=== PATIENT | female | born 1970 | race Caucasian/White ===

== ENCOUNTER → 2018-08-01 16:30 | Outpatient (CLI) | payer OTHER, SELFPAY ==
[2018-08-07 15:51] LABS: HPV HC, High Risk Negative (Negative)
== END ==
PROVIDERS: Referring Provider Obstetrics & Gynecology; Visit Provider Obstetrics & Gynecology
DX: Z12.4 Encounter for screening for malignant neoplasm of cervix (principal)
CPT/HCPCS: 87624; 88175; G0145

== ENCOUNTER → 2018-08-23 16:05 | Outpatient (CLI) | payer OTHER, SELFPAY ==
[2017-08-22 15:07] VITALS: BMI 23.0
--- NOTE | 2018-08-23 16:30 | BI_ITS ---
MAMMOGRAPHY - BILATERAL SCREENING REASON FOR EXAM: Female, 48 years old. Routine annual screening examination. PERTINENT HISTORY: Aunt with breast cancer. Prior left stereotactic breast biopsy. TECHNIQUE: Digital bilateral breast jefferson (3D mammographic acquisition) in the CC and MLO projections. 2-D mediolateral oblique (MLO) and craniocaudad (CC) views of both breasts were obtained. CAD: Full Field Digital Mammography with Computer Added Detection was performed. COMPARISON: Comparison is made with prior study dated August 13, 2017. FINDINGS: Breast Composition: The breasts are extremely dense, which lowers the sensitivity of mammography. There are no dominant masses or suspicious calcifications. Scattered microcalcifications are once again seen in the retroareolar region of the left breast. At this time however, a tissue clip marker is seen at that site. They have decreased in number. Stable bilateral benign-appearing axillary lymph nodes. No other significant abnormalities are identified. BI/SCREENING MAMM (CAD), BILAT IMPRESSION: Stable bilateral screening mammogram. Yearly follow-up mammogram recommended. (A) ASSESSMENT CATEGORY: BIRADS Category 2: Benign. A letter regarding these results will be sent to the patient by the facility within 30 days. Approximately 10% of breast cancers are not detected by mammography. A normal mammogram should not delay biopsy of a clinically suspicious abnormality. [id number] Electronically Signed: Chandler Huizar MD at 8:30 EST Tel [phone], Service support ,
--- OUTSIDE RECORDS SUMMARY | 2018-10-09 21:58 | XMS RPT_ITS ---
:1970 Author Organization [facility] Care Team Providers Name Role Phone Masood Romero Attending Unavailable Seals, Masood Referring Unavailable Primay Care Physicia, No Primary Care Unavailable Seals, Masood Attending Unavailable Seals, Masood Referring Unavailable Primay Care Physicia, No Primary Care Unavailable Seals, Masood Attending Unavailable Seals, Masood Referring Unavailable PROBLEMS PROBLEMS DATE TYPE CONDITION / CODE ATTENDING STATUS SOURCE 09/15/2018 Unknown R92.2 - Masood Romero Active [facility] R92.2(ICD-10) Repository 08/02/2018 Unknown Z12.4 - Encounter Masood Romero for screening for Community malignant neoplasm [facility] cervix / Repository Z12.4(ICD-10) PROCEDURES PROCEDURES No Procedure Records FoundRESULTS RESULTS BREAST BILATERAL W/O Observed: 09/15/2018 Status: F Source: [facility] AND W 9:31 AM [facility] REPOSITORY [facility] Imaging Services [address] [place] [address] Breast Bilateral W/O and W MR#: [id number] Acct: [id number] Name: CHUN HERNANDES Rep #: [id number] : 1970 F 48 From: Roger Galindo MD PCP: Care Physician, No Primary Status: REG CLI Study: Breast Bilateral W/O and W Date of Exam: 09/15/18 Exam# [id number] Ordering Dr: Masood Romero MD STUDY: BILATERAL BREAST MR WITHOUT AND WITH CONTRAST REASON FOR EXAM: Female, 48 years old. History of prior left stereotactic biopsy. Dense breasts with inconclusive mammogram. 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 TECHNIQUE: Multi-sequence multi-echo imaging of both breasts was performed with a dedicated breast coil. T1-weighted and T2- weighted images were performed before the administration of contrast. T1- weighted images were also performed after the administration of 6 mL of Gadavist contrast intravenously without complications. COMPARISON: Mammograms dated August 23, 2018 and August 13, 2017. FINDINGS: RIGHT BREAST: The breast tissue is markedly dense with minimal background enhancement. There are no abnormal enhancing masses or areas of non-mass enhancement in the right breast. LEFT BREAST: The breast tissue is markedly dense with minimal background enhancement. There are no abnormal enhancing masses or areas of non-mass enhancement in the left breast. There are no enlarged or abnormal lymph nodes. There is no abnormality in the visualized regions of the chest or liver. MRI/Breast Bilateral W/O and W IMPRESSION: No abnormality on the breast MRI without and with contrast. CATEGORY: BIRADS Category 2: Benign. A letter regarding these results will be sent to the patient by the facility within 30 days. Electronically Signed: Roger Galindo MD at 18:00 EST , Service support , CC: No Primary Care Physician; Masood Romero MD Audio Video Tech: Signed PROGRESS Observed: 09/01/2018 Status: COMPLETED Source: [place] 11:[address] [facility] [place] REPOSITORY [facility] ID: [id number] Author: Cassi Skinner (Sylvain) Layton Service: (none) Author Type: Nurse Practitioner Type: Progress Notes Filed: 09/01/2018 11:07 AM Note Text: Subjective HPI Patient presents with: Acute Visit: cold sore x yesterday Using Abreva otc but states out of oral medication prescribed by dentist, Famvir. Review of Systems Constitutional: Negative for fever and malaise/fatigue. HENT: Cold sore x yesterday PAST MEDICAL HISTORY Diagnosis Date - infertility 2002 was on clomid - Mitral valve disorders(424.0) Mitral valve prolaspe PAST SURGICAL HISTORY Procedure Laterality Date - EXTRACTION ERUPTED TOOTH/EXR WISDOM TEETH - HYSTEROSALPINGOGRAM CATHANDINSTILL ALLERGIES Patient has no known allergies. MEDICATIONS METOPROLOL TARTRATE ORAL Take 25 mg by mouth. One pill at bedtime and 1/2 pill in morning famciclovir (FAMVIR) 125 mg tablet Take 1 tablet by mouth twice daily for 5 days. Pseudoephedrine-guaiFENesin 120-1,200 mg Tb12 Take 1 tablet by mouth every 12 hours as needed ( FOR SINUS CONGESTION). FAMILY HISTORY Problem Relation Age of Onset - Breast Cancer Other MGGM - Cancer Maternal Grandfather SKIN - Hypertension Maternal Grandmother - Hypertension Maternal Grandfather - Diabetes Mother TYPE 2 - Heart Paternal Grandmother - Hypertension Mother Social History Substance Use Topics - Smoking status: Never Smoker - Smokeless tobacco: Never Used - Alcohol use Yes Comment: socially, NOT WHILE Objective Physical Exam HENT: Head: Nursing note and vitals reviewed. ASSESSMENT/PLAN: 1. Recurrent cold sores - ICD9: 054.9, ICD10: B00.1 -Famvir (per pt request, this is what she usually takes prescribed by dentist) -F/u with pcp in 3-5 days or sooner if symptoms are not improving or worsening Prescription instructions reviewed with patient as applicable. Patient advised if symptoms do not improve or if symptoms worsen sooner, to contact their primary care physician. Potential red flag symptoms discussed with the patient. Reviewed appropriate action plan to take if red flag symptoms occur. Patient agreeable to treatment plan. Cassi Traylor APRN.CRIS CNOV Observed: 09/01/2018 Status: COMPLETED Source: [place] 9:15 AM [facility] REPOSITORY Office Visit (WSTR) GRETACHUN MORLEY ([id number]) 1970 F Date Time Provider Department 09/01/18 9:15 AM CASSI TRAYLOR (FIELD INSTRUCTOR) [facility] During your visit today, we recorded the following information about you: Temperature Pulse Respiration Blood pressure 97.8 degrees 54/minute 18/minute 90/78 Weight 58.9 kg Cassi Traylor APRN.CNP 09/01/2018 11:07 AM Signed Subjective HPI Patient presents with: Acute Visit: cold sore x yesterday Using Abreva otc but states out of oral medication prescribed by dentist, Famvir. Review of Systems Constitutional: Negative for fever and malaise/fatigue. HENT: Cold sore x yesterday PAST MEDICAL HISTORY Diagnosis Date - infertility 2002 was on clomid - Mitral valve disorders(424.0) Mitral valve prolaspe PAST SURGICAL HISTORY Procedure Laterality Date - EXTRACTION ERUPTED TOOTH/EXR WISDOM TEETH - HYSTEROSALPINGOGRAM CATHANDINSTILL ALLERGIES Patient has no known allergies. MEDICATIONS METOPROLOL TARTRATE ORAL Take 25 mg by mouth. One pill at bedtime and 1/2 pill in morning famciclovir (FAMVIR) 125 mg tablet Take 1 tablet by mouth twice daily for 5 days. Pseudoephedrine-guaiFENesin 120-1,200 mg Tb12 Take 1 tablet by mouth every 12 hours as needed ( FOR SINUS CONGESTION). FAMILY HISTORY Problem Relation Age of Onset - Breast Cancer Other MGGM - Cancer Maternal Grandfather SKIN - Hypertension Maternal Grandmother - Hypertension Maternal Grandfather - Diabetes Mother TYPE 2 - Heart Paternal Grandmother - Hypertension Mother Social History Substance Use Topics - Smoking status: Never Smoker - Smokeless tobacco: Never Used - Alcohol use Yes Comment: socially, NOT WHILE Objective Physical Exam HENT: Head: Nursing note and vitals reviewed. ASSESSMENT/PLAN: 1. Recurrent cold sores - ICD9: 054.9, ICD10: B00.1 -Famvir (per pt request, this is what she usually takes prescribed by dentist) -F/u with pcp in 3-5 days or sooner if symptoms are not improving or worsening Prescription instructions reviewed with patient as applicable. Patient advised if symptoms do not improve or if symptoms worsen sooner, to contact their primary care physician. Potential red flag symptoms discussed with the patient. Reviewed appropriate action plan to take if red flag symptoms occur. Patient agreeable to treatment plan. Cassi Traylor, BETITO.CONTINUOUS PILLOWCASE CUTTER Referring Provider: SELF [200] Allergies As of Date: 09/01/2018 (No Known Allergies) Date Reviewed: 09/01/2018 Reviewed by: Stacey Garcia Ma - Fully Assessed Reason for Visit: Acute Visit [896] Cmt: cold sore Primary Visit Diagnosis:Recurrent cold sores [B00.1] Order(s):famciclovir (FAMVIR) 125 mg tabletTake 1 tablet by mouth twice daily for 5 days.Disp: 10 tabletRfl: 0 Prescriptions as of 09/01/2018 Sig: * METOPROLOL TARTRATE ORAL Take 25 mg by mouth. One pill* FAMCICLOVIR 125 MG TABLET Take 1 tablet by mouth twice * PSEUDOEPHEDRINE-GUAIFENESIN E* Take 1 tablet by mouth every * Patient not taking: Reported on 09/01/2018 Problem List As Of Date: 09/01/2018 (None) Prescriptions ordered this encounter Disp Refills Start End FAMCICLOVIR 125 MG TABLET 10 t* 0 09/01/2018 09/06/2018 Route: ORAL Sig: Take 1 tablet by mouth twice daily for 5 days. Disposition: Return if symptoms worsen or fail to improve. Follow-up and Disposition History Recorded Encounter Status:Closed by CASSI TRAYLOR on 09/01/18 SCREENING MAMM (CAD), Observed: 08/23/2018 Status: F Source: [place] B[place] 4:30 PM [facility] REPOSITORY [facility] Imaging Services [address] [place] [id number] SCREENING MAMM (CAD), BILAT MR#: [id number] Acct: [id number] Name: CHUN HERNANDES #: [id number] : 1970 F 48 From: Chandler Huizar MD PCP: Care Physician, No Primary Status: REG CLI Study: SCREENING MAMM (CAD), BILAT Date of Exam: 08/23/18 Exam# [id number] Ordering Dr: Masood Romero MD MAMMOGRAPHY - BILATERAL SCREENING REASON FOR EXAM: Female, 48 years old. Routine annual screening examination. PERTINENT HISTORY: Aunt with breast cancer. Prior left stereotactic breast biopsy. TECHNIQUE: Digital bilateral breast jefferson (3D mammographic acquisition) in the CC and MLO projections. 2-D mediolateral oblique (MLO) and craniocaudad (CC) views of both breasts were obtained. CAD: Full Field Digital Mammography with Computer Added Detection was performed. COMPARISON: Comparison is made with prior study dated August 13, 2017. FINDINGS: Breast Composition: The breasts are extremely dense, which lowers the sensitivity of mammography. There are no dominant masses or suspicious calcifications. Scattered microcalcifications are once again seen in the retroareolar region of the left breast. At this time however, a tissue clip marker is seen at that site. They have decreased in number. Stable bilateral benign-appearing axillary lymph nodes. No other significant abnormalities are identified. BI/SCREENING MAMM (CAD), BILAT IMPRESSION: Stable bilateral screening mammogram. Yearly follow-up mammogram recommended. (A) ASSESSMENT CATEGORY: BIRADS Category 2: Benign. A letter regarding these results will be sent to the patient by the facility within 30 days. Approximately 10% of breast cancers are not detected by mammography. A normal mammogram should not delay biopsy of a clinically suspicious abnormality. [id number] Electronically Signed: Chandler Huizar MD at 8:30 EST Tel [phone], Service support , CC: No Primary Care Physician; Masood Romero MD Audio Video Tech: Signed PAP I-G HPV HI Collected: 08/01/2018 Status: F Source: [place] RISK 4:30 PM [facility] REPOSITORY Order Comment: CYTOLOGY INFORMATION: - CLINICAL INFORMATION: - DATE LMP/MENOPAUSE: 07/08/18 LMP - COLLECTION VIAL: Thin Prep Vial - FAMILY PSYCHOLOGIST SOURCE: CERVICAL/ENDOCERVICAL - COLLECTION TECHNIQUE: BRUSH/SPATULA Specimen Comment: [id number] Specimen Comment: Source.............Cervix;Endocervix Specimen Comment: LMP / Prev Treat...TWD=[id number] Specimen Comment: No. of containers..01 ThinPrep Vial TYPE CODE TESTS RESULT OUT OF RANGE REFERENCE UNITS LAB L7400.0800 . Normal DIAGN Comment Result Comment: NEGATIVE FOR INTRAEPITHELIAL LESION AND MALIGNANCY. CELLULAR CHANGES ASSOCIATED WITH INFLAMMATION ARE PRESENT. THIS SPECIMEN WAS RESCREENED PART OF OUR REPAIRER WELDING EQUIPMENT PROGRAM. LAB L7400.0900 . Normal ADEQ Comment Result Comment: Satisfactory for evaluation. Endocervical and/or squamous metaplastic cells (endocervical component) are present. LAB L7400.1400 . Normal PERFORM Comment Result Comment: Bowen Ruiz, Land Measurer (ASCP) LAB L7400.1500 . Normal QC Comment REV Result Comment: Nimisha Christie, Supervisory Land Measurer (ASCP) LAB L7400.2575 . Normal TEST METHOD Comment Result Comment: This liquid based ThinPrep(R) pap test was screened with the use of an image guided system. LAB L7400.2600 . Normal . COMM LAB L7400.2700 . Normal PAPSMR Comment Result Comment: The Pap smear is a screening test designed to aid in the detection of premalignant and malignant conditions of the uterine cervix. It is not a diagnostic procedure and should not be used as the sole means of detecting cervical cancer. Both false-positive and false-negative reports do occur. LAB L7400.2950 Negative Normal HPV Negative HC,HGH RISK Result Comment: This high-risk HPV test detects thirteen high-risk types (16/18/31/33/35/39/45/51/52/56/58/59/68) without differentiation. Performed at: WB - [facility] [address] [id number] Other Wood Processing Machine Operator: Marilyn Pardo MD, Phone: [phone] Performed at: =G - [facility] [address] [id number] Other Wood Processing Machine Operator: Marilyn Pardo MD, Phone: [phone] Performed By: #### L7400.0375 #### [facility] (refer to report for specific site) refer to report for address and phone number ALLERGIES ALLERGIES DATE TYPE / CODE NAME / CODE REACTION SEVERITY SOURCE 08/31/2017 Drug No Known Unknown [facility] Allergy/416 Allergies/F13190 Hospital [id number](SNOM 0388(RXNORM) Repository ED CT) Drug NO KNOWN [facility] Class/01557 ALLERGIES Main [place] 1003(SNOMED Repository CT) ENCOUNTERS ENCOUNTERS ADMIT/DISCHARGE ACCOUNT ADMITTING ENCOUNTER LOCATION SOURCE NUMBER CLASS 09/15/2018 [id number] [facility] ing:MRI Repository 09/01/2018/09/01/20 [id number] [address]ulatory [address] Repository 08/23/2018 [id number] [facility] ing:OPBI Repository 08/01/2018 [id number] [facility] ing:LABSPEC Repository PAYERS PAYERS ENCOUNTER GUARANTOR PAYER SUBSCRIBER SOURCE 09/15/2018 CHUN Frey Primary Insurance:[facility] CHUN [place] [id number] S PACKAGE PLANPolicy SUNDBERGDOB: [facility] [place]ART Number: [id number], [id number] Repository [place] [address]Cww: Date:2018-08-25 (XM) 09/15/2018 Secondary NOT GIVENUNK [place] Insurance:SELF PAY [facility] Number: Effective Repository Date:2018-08-25 08/23/2018 CHUN Frey Primary Insurance:[facility] CHUN [place] [id number] S MUTUAL TPAPolicy SUNDBERGDOB: [facility] [place]ART Number: [id number], [id number] Repository [place] [address]Jlv: Date:2147-09-36[address] [address]GGBRPTUJL, [place] () [address]AG: CHECK WEBSITE 08/23/2018 Secondary NOT GIVENUNK [place] Insurance:SELF PAY [facility] Number: Effective Repository Date:2018-06-29 08/01/2018 [facility] Primary Insurance:[facility] CHUN [place] [id number] [facility] Swinesharon hospitalt Number: [id number], [id number] [place]ository [place] [address]Iox: Date:[id number] [address] [address]CNQAUNYBV, [place] () [address]XL: CHECK WEBSITE 08/01/2018 Secondary NOT GIVENUNK [facility] Insurance:SELF PAY [facility] Number: Effective Repository Date:2018-08-01
== END ==
PROVIDERS: Referring Provider Obstetrics & Gynecology; Visit Provider Obstetrics & Gynecology
DX: Z12.31 Encounter for screening mammogram for malignant neoplasm of breast (principal)
CPT/HCPCS: 77063; 77067

== ENCOUNTER → 2018-09-15 09:22 | Outpatient (CLI) | payer SELFPAY ==
--- NOTE | 2018-09-15 10:00 | MRI_ITS ---
STUDY: BILATERAL BREAST MR WITHOUT AND WITH CONTRAST REASON FOR EXAM: Female, 48 years old. History of prior left stereotactic biopsy. Dense breasts with inconclusive mammogram. 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 TECHNIQUE: Multi-sequence multi-echo imaging of both breasts was performed with a dedicated breast coil. T1-weighted and T2-weighted images were performed before the administration of contrast. T1-weighted images were also performed after the administration of 6 mL of Gadavist contrast intravenously without complications. COMPARISON: Mammograms dated August 23, 2018 and August 13, 2017. FINDINGS: RIGHT BREAST: The breast tissue is markedly dense with minimal background enhancement. There are no abnormal enhancing masses or areas of non-mass enhancement in the right breast. LEFT BREAST: The breast tissue is markedly dense with minimal background enhancement. There are no abnormal enhancing masses or areas of non-mass enhancement in the left breast. There are no enlarged or abnormal lymph nodes. There is no abnormality in the visualized regions of the chest or liver. MRI/Breast Bilateral W/O and W IMPRESSION: No abnormality on the breast MRI without and with contrast. CATEGORY: BIRADS Category 2: Benign. A letter regarding these results will be sent to the patient by the facility within 30 days. Electronically Signed: Roger Galindo MD at 18:00 EST , Service support ,
== END ==
PROVIDERS: Referring Provider Obstetrics & Gynecology; Visit Provider Obstetrics & Gynecology
DX: R92.2 Inconclusive mammogram (principal)
CPT/HCPCS: 77049; A9585; A4216; C8908

== ENCOUNTER → 2019-09-18 16:10 | Outpatient (CLI) | payer OTHER, SELFPAY ==
--- NOTE | 2019-09-18 16:13 | BI_ITS ---
MAMMOGRAPHY - BILATERAL SCREENING REASON FOR EXAM: Female, 49 years old. Routine annual screening examination. PERTINENT HISTORY: Aunts with breast cancer. TECHNIQUE: Digital bilateral breast luanne (3D mammographic acquisition) in the CC and MLO projections. 2-D mediolateral oblique (MLO) and craniocaudad (CC) views of both breasts were obtained. CAD: Full Field Digital Mammography with Computer Added Detection was performed. COMPARISON: Comparison is made with prior examination dated August 23, 2018 and August 13, 2007. FINDINGS: Breast Composition: The breasts are extremely dense, which lowers the sensitivity of mammography. There are no dominant masses or suspicious calcifications. Stable appearance of the scattered microcalcifications in the retroareolar region of the left breast. A tissue clip marker is seen in the superior periareolar region of the left breast. This is unchanged. Stable benign-appearing bilateral axillary lymph nodes. No other significant abnormalities are identified. There has been no significant change since the prior study. BI/SCREEN MAMM (CAD) W/LUANNE BILAT IMPRESSION: Stable bilateral screening mammogram. Yearly follow-up mammogram recommended. (A) ASSESSMENT CATEGORY: BIRADS Category 2: Benign. A letter regarding these results will be sent to the patient by the facility within 30 days. Approximately 10% of breast cancers are not detected by mammography. A normal mammogram should not delay biopsy of a clinically suspicious abnormality. [id number] Electronically Signed: Chandler Huizar, at 9:57 EST , Service support ,
== END ==
PROVIDERS: Referring Provider Obstetrics & Gynecology; Visit Provider Obstetrics & Gynecology
DX: Z12.31 Encounter for screening mammogram for malignant neoplasm of breast (principal)
CPT/HCPCS: 77063; 77067

== ENCOUNTER → 2020-09-16 | Outpatient (CLI) | payer OTHER, SELFPAY ==
[2020-04-09 11:48] VITALS: BMI 24.7
[2020-09-19 15:51] LABS: HPV APTIMA, High Risk Negative (Negative)
== END | disposition home or self-care (01) ==
LOC: LABSPEC 09-17 08:29
PROVIDERS: Visit Provider Obstetrics & Gynecology
DX: Z12.4 Encounter for screening for malignant neoplasm of cervix (principal)
CPT/HCPCS: 87624; 88175; G0145

== ENCOUNTER → 2020-10-07 16:13 | Outpatient (CLI) | payer OTHER, SELFPAY ==
[2020-04-09 11:48] VITALS: BMI 24.7
--- NOTE | 2020-10-07 16:14 | BI_ITS ---
MAMMOGRAPHY - BILATERAL SCREENING REASON FOR EXAM: Female, 50 years old. Routine annual screening examination. PERTINENT HISTORY: Grandmother with breast cancer. Remote left stereotactic breast biopsy. TECHNIQUE: Digital bilateral breast luanne (3D mammographic acquisition) in the CC and MLO projections. 2-D mediolateral oblique (MLO) and craniocaudad (CC) views of both breasts were obtained. CAD: Full Field Digital Mammography with Computer Added Detection was performed. COMPARISON: Comparison is made with prior study dated 09/18/2019 and 08/23/2018. FINDINGS: Breast Composition: The breasts are extremely dense, which lowers the sensitivity of mammography. There are no dominant masses or suspicious calcifications. Stable benign-appearing bilateral axillary lymph nodes. A tissue clip marker is once again seen in the superior periareolar region of the left breast. No other significant abnormalities are identified. There has been no significant change since the prior study. BI/SCRN MAMM (CAD)W/LUANNE BILAT IMPRESSION: Stable bilateral screening mammogram. Yearly follow-up mammogram recommended. (A) ASSESSMENT CATEGORY: BIRADS Category 2: Benign. A letter regarding these results will be sent to the patient by the facility within 30 days. Approximately 10% of breast cancers are not detected by mammography. A normal mammogram should not delay biopsy of a clinically suspicious abnormality. [id number] Electronically Signed: Chandler Huizar MD at 8:24 EST , Service support ,
== END ==
PROVIDERS: Referring Provider Obstetrics & Gynecology; Visit Provider Obstetrics & Gynecology
DX: Z12.31 Encounter for screening mammogram for malignant neoplasm of breast (principal)
CPT/HCPCS: 77063; 77067

== ENCOUNTER → 2021-03-10 08:51 | Outpatient (CLI) | payer OTHER, SELFPAY ==
[2020-04-09 11:48] VITALS: BMI 24.7
--- NOTE | 2021-03-10 08:53 | ECHOCS_ITS ---
Reason For Study: MVP Procedure This was a 2D Doppler, Color Flow transthoracic echocardiogram. The study was technically difficult. Contrast injection was performed. Exam performed in department. Left Ventricle Normal LV size. The estimated ejection fraction is 60 %. No evidence for diastolic dysfunction. No regional wall motion abnormalities noted. Right Ventricle Normal RV size. Normal systolic function. Atria Normal left atrium. Normal right atrium. No doppler evidence for ASD. Mitral Valve There is no mitral valve stenosis. Mild (1+) mitral valve insufficiency. Tricuspid Valve There is no tricuspid stenosis. Mild tricuspid valve insufficiency. Pulmonary artery systolic pressure is 30 mmHg. Aortic Valve Trisinus/trileaflet aortic valve. There is no aortic stenosis. No aortic valve insufficiency. Pulmonic Valve There is no pulmonic valvular stenosis. No pulmonic valve insufficiency. Great Vessels Normal aortic root. Pericardium/Pleural No pericardial effusion. Medication 22 gauge I.V. with prn adaptor inserted into left arm. Diluted definity 2ml given slow IV push to enhance endocardial definition. MMode/2D Measurements & Calculations LVIDd: 4.2 cm IVSd: 0.80 cm LA dimension: 3.3 cm LVIDs: 2.5 cm LVPWd: 0.71 cm FS: 39.2 % LAV(MOD-bp): 34.9 ml LA A4 area: 16.0 cm2 RA A4 area: 13.5 cm2 LAV(MOD-bp) Indexed: 21.6 ml/m2 LAV(MOD-sp2): 30.0 ml LAV(MOD-sp4): 36.8 ml Time Measurements MV dec time: 0.16 sec Doppler Measurements & Calculations MV E max ector: 100.3 cm/sec Lat Peak E' Ector: 13.8 cm/sec Med Peak E' Ector: 14.1 cm/sec MV A max ector: 54.5 cm/sec E/E' lat: 7.3 E/E' med: 7.1 MV E/A: 1.8 MV V2 max: 103.0 cm/sec MV P1/2t max ector: 103.0 cm/sec Ao V2 max: 108.4 cm/sec MV max P.2 mmHg MV P1/2t: 75.3 msec Ao max P.7 mmHg MV V2 mean: 49.5 cm/sec MV dec slope: 401.0 cm/sec2 MV mean P.2 mmHg MV V2 VTI: 30.1 cm MVA(P1/2t): 2.9 cm2 LV V1 max: 113.2 cm/sec PA V2 max: 77.0 cm/sec TR max ector: 257.1 cm/sec LV V1 max P.1 mmHg TR max P.4 mmHg ECHO/Echo Complete W/ Contrast Interpretation Summary No evidence for diastolic dysfunction. The estimated ejection fraction is 60 %. Mild (1+) mitral valve insufficiency. Mild tricuspid valve insufficiency. Contrast injection was performed. Ordering Physician: Sundeep Martinez Referring Physician: Ira Parrish Performed By: Keven Garcia RCS
== END ==
PROVIDERS: PCP Nurse Practitioner Primary Care; Referring Provider Specialist; Visit Provider Specialist
DX: I34.0 Nonrheumatic mitral (valve) insufficiency (principal); R00.2 Palpitations
CPT/HCPCS: 93306; Q9957; A4216; C8929; J3490

== ENCOUNTER → 2021-04-09 09:01 | Outpatient (CLI) | payer OTHER, SELFPAY ==
[2021-04-08 08:40] VITALS: BMI 24.3
[2021-04-09 10:08] LABS: AST(SGOT) 24 U/L (15-37); Alanine Aminotransfer ALT/SGPT 18 U/L (13-56); Albumin, Serum 3.6 g/dL (3.2-5.0); Alkaline Phosphatase 61 U/L (45-117); Anion Gap 6 (5-15); BUN 13 mg/dL (7-18); BUN/Creat Ratio 16.9 RATIO (10-20); Calcium,Total 8.4 mg/dL (8.5-10.1); Chloride 103 mmol/L (98-107); Cholesterol 175 mg/dL (200); Creatinine, Serum 0.77 mg/dL (0.55-1.02); EST Glomerular Filtration Rate 85 mL/min (>60); Est Glom Filt Rate - Afr Amer 103 mL/min (>60); Globulin 3.6 g/dL (2.2-4.2); Glucose 90 mg/dL (74-106); High Density Lipoprotein 60 mg/dL; Potassium 3.8 mmol/L (3.5-5.1); Protein, Total 7.2 g/dL (6.4-8.2); Sodium Level 138 mmol/L (136-145); Thyroid Stim Hormone (TSH) 2.45 uIU/mL (0.358-3.74); Triglycerides 125 mg/dL; Very Low Density Lipoprotein 25 mg/dL (5-40)
== END ==
PROVIDERS: PCP Nurse Practitioner Primary Care; Referring Provider Nurse Practitioner Gerontology; Visit Provider Nurse Practitioner Gerontology
DX: R00.2 Palpitations (principal); Z83.438 Family history of other disorder of lipoprotein metabolism and other lipidemia
CPT/HCPCS: 36415; 80053; 80061; 84443

== ENCOUNTER 2021-10-08 09:31 | Outpatient (CLI) | payer OTHER, SELFPAY ==
--- NOTE | 2021-10-08 09:40 | BI_ITS ---
MAMMOGRAPHY - BILATERAL DIAGNOSTIC REASON FOR EXAM: Female, 51 years old. Left axillary pain and palpable lump. Recent Covid vaccination. PERTINENT HISTORY: Aunt with breast cancer. TECHNIQUE: Digital bilateral breast jefferson (3D mammographic acquisition) in the CC and MLO projections. 2-D mediolateral oblique (MLO) and craniocaudad (CC) views of both breasts were obtained. CAD: Full Field Digital Mammography with Computer Added Detection was performed. COMPARISON: Comparison is made with prior examination dated 10/07/2020 and 09/18/2019. FINDINGS: Breast Composition: The breasts are extremely dense, which lowers the sensitivity of mammography. There are no dominant masses or suspicious calcifications. Stable benign-appearing bilateral axillary lymph nodes. A tissue clip marker is seen in the anterior upper retrocrural region of the left breast. No other significant abnormalities are identified. There has been no significant change since the prior study. BI/DIAG MAMM W/CAD, BILAT IMPRESSION: Stable bilateral diagnostic mammogram. With the patient''s history of a palpable lump in the left axillary region, correlation with ultrasound is recommended. ASSESSMENT CATEGORY: BIRADS Category 0: Incomplete. Need additional imaging evaluation. A letter regarding these results will be sent to the patient by the facility within 30 days. Approximately 10% of breast cancers are not detected by mammography. A normal mammogram should not delay biopsy of a clinically suspicious abnormality. Electronically Signed: Chandler Huizar MD at 10:54 EST ,
--- NOTE | 2021-10-08 09:41 | US_ITS ---
STUDY: ULTRASOUND BREAST - LEFT REASON FOR EXAM: Female, 51 years old. Palpable lump left axillary region of the breast. TECHNIQUE: Axial and longitudinal images of the LEFT breast were performed with a high resolution ultrasound transducer. # OF IMAGES: 36 COMPARISON: Comparison is made with prior mammogram done earlier today. FINDINGS: LEFT Breast: The axillary region of the left breast as well as the tail portion of the left breast was examined by ultrasound. 2 benign-appearing lymph nodes are seen. The larger measures 1.8 cm x 0.5 cm x 0.6 cm. US/Breast Limited Unilateral IMPRESSION: 2 benign-appearing lymph nodes are seen in the left axillary region. The larger measures 1.8 cm x 0.5 cm x 0.6 cm. ASSESSMENT CATEGORY: BIRADS Category 2: Benign. A letter regarding these results will be sent to the patient by the facility within 30 days. Electronically Signed: Chandler Huizar MD at 10:56 EST ,
== END 2021-10-08 23:59 | disposition short-term general hospital (02) ==
PROVIDERS: PCP Nurse Practitioner Primary Care; Referring Provider Obstetrics & Gynecology; Visit Provider Obstetrics & Gynecology
DX: N64.4 Mastodynia (principal)
CPT/HCPCS: 76642; 77062; 77066; G0279

== ENCOUNTER → 2022-11-02 | Outpatient (CLI) | payer OTHER, SELFPAY ==
--- NOTE | 2022-11-02 14:37 | BI_ITS ---
MAMMOGRAPHY - BILATERAL SCREENING REASON FOR EXAM: Female, 52 years old. Routine annual screening examination. PERTINENT HISTORY: Aunt with breast cancer. Prior left stereotactic breast biopsy. TECHNIQUE: Digital bilateral breast luanne (3D mammographic acquisition) in the CC and MLO projections. 2-D mediolateral oblique (MLO) and craniocaudad (CC) views of both breasts were obtained. CAD: Full Field Digital Mammography with Computer Added Detection was performed. COMPARISON: Comparison is made with prior study of 10/08/2021 and 10/07/2020. FINDINGS: Breast Composition: The breasts are extremely dense, which lowers the sensitivity of mammography. There are no dominant masses or suspicious calcifications. Stable benign-appearing bilateral axillary lymph nodes. A tissue clip marker is once again seen in the retroareolar region of the left breast No other significant abnormalities are identified. There has been no significant change since the prior study. BI/SCRN MAMM (CAD)W/LUANNE BILAT IMPRESSION: Stable bilateral screening mammogram. Yearly follow-up mammogram recommended. (A) ASSESSMENT CATEGORY: BIRADS Category 2: Benign. A letter regarding these results will be sent to the patient by the facility within 30 days. Approximately 10% of breast cancers are not detected by mammography. A normal mammogram should not delay biopsy of a clinically suspicious abnormality. [id number] Electronically Signed: Chandler Huizar MD at 15:33 EST ,
== END | disposition home or self-care (01) ==
LOC: OPBI 14:35
PROVIDERS: PCP Nurse Practitioner Primary Care; Visit Provider Student in an Organized Health Care Education/Training Program
DX: Z12.31 Encounter for screening mammogram for malignant neoplasm of breast (principal)
CPT/HCPCS: 77063; 77067

== ENCOUNTER 2023-12-26 06:47 | Emergency (ER) | payer OTHER, SELFPAY ==
[2023-12-26 06:48] VITALS: BP 149/57; PULSE 76; RESP 16; TEMP 36.5; O2SAT 100; BMI 27.0
--- NOTE | 2023-12-26 07:06 | ED.VIS.CHEST ---
HPI History of Present Illness Chief Complaint: Chest Pain Informant: patient Onset/Context/Timing Onset: Weeks (1) Activity at onset: gradual Timing: Continuous Quality: Positive for Burning Location: - (Left anterior neck and left shoulder) Worsened By: Nothing Relieved By: Nothing Associated Symptoms: Positive for Cough, Acid Reflux and Palpitations; Negative for Nausea, Vomiting, Diaphoresis, Dyspnea, Fever or Lightheadedness Narrative Narrative: Patient presents with pain in her neck and left arm that has been getting worse over the past week. Patient states her neck pain has been constant for the past week. Patient states she started having some pain in her left shoulder and scapular area since yesterday evening. Patient describes it as burning. Patient states nothing makes it better nothing makes it worse. Patient admits to a mild cough. Patient denies any nausea or vomiting. Patient denies any diaphoresis. Patient denies any shortness of breath. Patient states she has a history of mitral valve prolapse and has occasional palpitations. CVD Risk Factors: Negative for Hypertension, Diabetes, Hypercholesterolemia, Family History 1' </=55 or Smoking PE Risk Factors: Negative for Recent Travel/Surgery, Recent Immobilization, Prior DVT or PE, Cancer or OCP + Smoking + >/=35 PFSH PFSH Medical History (Updated 12/26/23 @ 08:[address] Aiden Butts DO) Microcalcification of left breast on mammogram Mitral valve prolapse Nonrheumatic mitral valve regurgitation Palpitations Home Medications biotin 1 mg capsule 1 mg PO DAILY 04/09/20 [History Last Taken Unknown] metoprolol tartrate 25 mg tablet 25 mg PO BID #60 tabs 04/08/21 [Rx Last Taken Unknown] Allergy/AdvReac Type Severity Reaction Status Date / Time No Known Allergies Allergy Verified 04/08/21 11:12 Family History Son Asthma Aunt Breast cancer Grandfather Colon cancer Mother Diabetes Hypertension Surgical History History of wisdom tooth extraction Social History Smoking Status: Never smoker alcohol intake: current alcohol intake frequency: holidays/special occasions only substance use type: does not use caffeine: Yes (Occasionally) Type: tea ROS ROS ED Constitutional Constitutional ED: Denies chills or fever(s) Eyes Eyes: Denies blurry vision or change in vision ENT ENT ED: Reports sore throat; Denies rhinorrhea Cardiovascular Cardiovascular: Reports chest pain; Denies palpitations Respiratory/Chest Respiratory/Chest: Reports cough; Denies dyspnea Gastrointestinal Gastrointestinal: Denies nausea or vomiting Genitourinary Genitourinary ED: Denies dysuria or hematuria Musculoskeletal Musculoskeletal: Reports back pain; Denies neck pain Integumentary Denies abscess or rash Neurologic Neurologic: Reports headache(s); Denies weakness Allergic/Immunologic Allergic/Immunologic ED: Denies mouth swelling or urticaria EXAM Physical Exam Const Vital Signs: 12/26/23 06:48 12/26/23 06:52 12/26/23 07:46 Temperature 97.7 F L Temperature Source Oral Pulse Rate 76 Respiratory Rate 16 Respiratory Effort Normal Blood Pressure 149/57 H Blood Pressure Mean 87 Pulse Ox 100 100 Oxygen Delivery Method Room Air Room Air 12/26/23 07:50 12/26/23 07:54 12/26/23 08:51 Temperature 97.5 F L Temperature Source Pulse Rate 59 L 67 56 L Respiratory Rate 12 15 Respiratory Effort Blood Pressure 135/83 H 116/72 122/66 H Blood Pressure Mean 86 84 Pulse Ox 100 99 Oxygen Delivery Method Room Air Positive well nourished and well developed General Appearance ED: well developed and NAD HEENT Reports moist mucous membranes Neck supple and no JVD Chest Wall inspection of chest normal and palpation of chest normal Resp normal respiratory effort and clear to auscultation bilaterally Cardio regular rate and regular rhythm GI soft to palpation, non-tender and non-distended Extremity normal to inspection General Extremety ED: Negative for edema or tenderness General Extremity: Negative for edema Neuro oriented x3, CN's II-XII intact bilaterally and no sensory deficits noted Sensorium / Orientation: awake and alert Motor Exam: strength 5/5 throughout Psych mental status grossly normal Heart Score History: Slightly/Non-Suspicious ECG: Normal Age: >45 - <65 years Risk Factors: No Risk Factors Troponin: </= Normal Limit Score: 1 MDM MDM MDM Narrative Medical decision making narrative: Differential diagnosis includes cardiac dysrhythmia, cardiac ischemia, electrolyte abnormality, pneumonia, pneumothorax, musculoskeletal pain, and anxiety. Patient has a Wells score of 0 and does not have any PE risk factors. I do not feel this is from a pulmonary embolism. EKG will be obtained to assess for cardiac dysrhythmia and cardiac ischemia. Chest x-ray will be obtained to assess for pneumonia and pneumothorax. CBC will be obtained to assess for leukocytosis and anemia. Basic metabolic profile will be obtained to assess for electrolyte abnormality and renal function. High-sensitivity troponin will be obtained to assess for cardiac ischemia. Lab Data Attestation: I reviewed the patient's lab results. Lab results narrative: CBC was reviewed and was within normal limits. Basic metabolic profile was reviewed and was within normal limits. High-sensitivity troponin was reviewed and was normal at 4. Labs: Laboratory Results - last 24 hr 12/26/23 07:45 WBC 5.2 RBC 5.14 Hgb 16.1 H Hct 49.0 H MCV 95.3 MCH 31.3 MCHC 32.9 RDW Std Deviation 42.5 RDW Coeff of Sixto 12.1 Plt Count 250 MPV 9.6 Immature Gran % (Auto) 0.200 Neut % (Auto) 54.7 Lymph % (Auto) 32.2 [place] % (Auto) 7.9 Eos % (Auto) 4.2 Baso % (Auto) 0.8 Absolute Neuts (auto) 2.9 Absolute Lymphs (auto) 1.68 Nucleated RBC % 0 Sodium 141 Potassium 3.6 Chloride 107 Carbon Dioxide 30.0 Anion Gap 4 L BUN 18 Creatinine 0.96 Estim Creat Clear Calc 62.28 Est GFR (MDRD) Af Amer 79 Est GFR (MDRD) Non-Af 65 BUN/Creatinine Ratio 18.8 Glucose 98 Calcium 9.6 Troponin I High Sens 4 Radiography Chest X-Ray - ED: 2 View, Read by ED Physician, Read by Radiologist and No Acute Disease Diagnostic Testing: Clinical Impression(s) from Imaging Studies Chest X-Ray 12/26/23 07:37 IMPRESSION: Normal x-ray examination of the chest. Electronically Signed: Chandler Huizar MD at 8:19 EDT , PA and lateral chest x-ray was obtained. There are 2 views. On my independent interpretation, lung olivares are clear. There is normal cardiac silhouette. Bony thorax is normal. There is no acute process noted. Radiologist also interpreted the x-ray and agrees. EKG Initial EKG: Attestation: I personally reviewed and interpreted this EKG as follows: Interpretation: Sinus Rhythm (62) and No Acute Injury Pattern Comments: EKG was obtained. On my independent interpretation, it showed a normal sinus rhythm with a rate of 62. IL interval, QRS interval, and QTc intervals were all normal. [place] was normal. There are no acute ST or T wave changes. Prior EKG tracings: available for review Prior: Unchanged (04/09/2020) Treatment and Re-Evaluation :: Patient was given aspirin. Patient was advised of her findings. Patient is feeling better on reevaluation. Patient has a HEART score of 1. Patient was advised that this is low risk for acute cardiac event. Patient was instructed to follow-up with her primary care physician in 5 to 7 days. Patient was instructed to return if worse in any way. Patient understood and was agreeable with the plan. All questions were answered. Discharge Plan Triage Chief Complaint: Chest Pain ED Provider: Aiden Butts Dx/Rx/DC Orders Clinical Impression: Atypical chest pain, Mitral valve prolapse Instructions: ED Chest Pain, Uncertain Cause Prescriptions: No Action biotin 1 mg capsule 1 mg PO DAILY metoprolol tartrate 25 mg tablet 25 mg PO BID Qty: 60 11RF Primary Care Provider: Care Physician,No Primary Referrals: Ira Parrish NP, [facility] [Non-Staff] - 5-7 Days Disposition Disposition: Home, Self Care Discharge Date/Time: 12/26/23 08:55
--- NOTE | 2023-12-26 07:37 | RAD_ITS ---
STUDY: X-RAY CHEST REASON FOR EXAM: Female, 53 years old. ARM AND NECK PAIN TECHNIQUE: PA and lateral views of the chest. COMPARISON: None. FINDINGS: EKG electrodes are seen. The lungs are clear and expanded. There is no demonstrated pleural abnormality. Normal size heart. Normal mediastinum and miguel. Normal visualized pulmonary arteries. Normal visualized aortic arch and descending thoracic aorta. Normal visualized thoracic spine. Normal visualized ribs, clavicles, and shoulders. There is no demonstrated abnormality of the visualized soft tissue structures of the upper abdomen. RAD/Chest PA and Lateral IMPRESSION: Normal x-ray examination of the chest. Electronically Signed: Chandler Huizar MD at 8:19 EDT ,
--- NOTE | 2023-12-26 07:37 | EKG12_ITS ---
Test Reason : CHEST PAIN Blood Pressure : / mmHG Vent. Rate : 062 BPM Atrial Rate : 062 BPM P-R Int : 144 ms QRS Dur : 074 ms QT Int : 388 ms P-R-T Axes : 058 033 038 degrees QTc Int : 393 ms Normal sinus rhythm with sinus arrhythmia Normal ECG Confirmed by STEVAN MEDELLIN, KEISHA ([id number]), editorial clerk LILLIE WICK ([id number]) on 12/27/2023 8:21:19 AM Referred By: Confirmed By:KEISHA CALLES MD
[2023-12-26] MEDS: Aspirin 81 MG TAB.CHEW 324 MG PO (07:41)
[2023-12-26 07:46] VITALS: O2SAT 100
[2023-12-26 07:50] VITALS: BP 135/83; PULSE 59
[2023-12-26] MEDS: Nitroglycerin SL (ED/IMG/CATH) 0.4 MG TABLET SL (07:50)
[2023-12-26 07:53] LABS: Absolute Lymphocyte Count 1.68 X10^3/uL (0.83-4.51); Absolute Neutrophil Count 2.9 X10^3/uL (2.0-7.7); Basophil# 0.04 X10^3/uL; Basophil% 0.8 % (0-1); Eosinophil# 0.22 X10^3/uL; Eosinophils% 4.2 % (0-5); Hemoglobin 16.1 g/dL (12.0-15.0); Lymphocyte # 1.68 X10^3/ul (0.83-4.51); Lymphocyte % 32.2 % (19-41); Mean Corp Hgb Conc 32.9 g/dL (32-36); Mean Corpuscular Hgb 31.3 pg (27.0-32.0); Mean Corpuscular Volume 95.3 fL (81-99); Mean Platelet Vol. 9.6 fl (6.2-12.0); Monocyte# 0.41 X10^3/uL; Monocyte% 7.9 % (0-10); NRBC Flagged by Analyzer 0 % (0-5); Neutrophil # 2.85 X10^3/uL (2.7-7.7); Neutrophil % 54.7 % (47-70); Platelet Count 250 K/mm3 (150-450); RBC Distribution Width CV 12.1 % (11.6-14.6); RBC Distribution Width SD 42.5 fl (35.1-43.9); Red Blood Count 5.14 M/mm3 (4.2-5.4); White Blood Count 5.2 K/mm3 (4.4-11.0)
[2023-12-26 07:54] VITALS: BP 116/72; PULSE 67; RESP 12; O2SAT 100
[2023-12-26 08:18] LABS: Anion Gap 4 (5-15); BUN 18 mg/dL (7-18); BUN/Creat Ratio 18.8 RATIO (10-20); Calcium,Total 9.6 mg/dL (8.5-10.1); Chloride 107 mmol/L (98-107); Creatinine, Serum 0.96 mg/dL (0.55-1.02); EST Glomerular Filtration Rate 65 mL/min (>60); Est Glom Filt Rate - Afr Amer 79 mL/min (>60); Estimated Creatinine Clearance 62.28 ml/min; Glucose 98 mg/dL (74-106); Potassium 3.6 mmol/L (3.5-5.1); Sodium Level 141 mmol/L (136-145); Troponin-I HS 4 pg/mL (3.0-54.0)
[2023-12-26 08:51] VITALS: BP 122/66; PULSE 56; RESP 15; TEMP 36.4; O2SAT 99
== END 2023-12-26 08:55 | disposition home or self-care (01) ==
PROVIDERS: Emergency Provider Emergency Medicine; Visit Provider Emergency Medicine
DX: R07.89 Other chest pain (principal); I34.1 Nonrheumatic mitral (valve) prolapse; Z79.899 Other long term (current) drug therapy
CPT/HCPCS: 71046; 80048; 84484; 85025; 93005; 99285; A4216

== ENCOUNTER → 2024-02-16 | Outpatient (CLI) | payer OTHER, SELFPAY ==
--- NOTE | 2024-02-16 06:21 | ECHOCS_ITS ---
Reason For Study: CHEST PAIN Procedure This was a 2D Doppler, Color Flow transthoracic echocardiogram. The study was technically difficult. Due to poor apical accoustic windows. Contrast injection was performed. Exam performed in department. Left Ventricle Normal LV size. Left ventricular systolic function is normal. The left ventricular ejection fraction is 60 %. No regional wall motion abnormalities noted. Right Ventricle Normal RV size. Normal systolic function. Atria Normal left atrium. Normal right atrium. Mitral Valve Normal mitral valve. Tricuspid Valve Normal tricuspid valve. Mild (1+) tricuspid valve insufficiency. Pulmonary artery systolic pressure is 28 mmHg. Aortic Valve Normal aortic valve. Pulmonic Valve The pulmonic valve is not well visualized. Great Vessels Normal aortic root. The pulmonary artery is normal size. Normal inferior vena cava. Pericardium/Pleural No pericardial effusion. Medication Diluted definity 2.0ml given slow IV push to enhance endocardial definition. MMode/2D Measurements & Calculations LVIDd: 4.3 cm IVSd: 0.73 cm Ao root diam: 2.9 cm LVIDs: 2.5 cm LVPWd: 0.77 cm RVDd: 2.8 cm FS: 42.2 % LAV(MOD-sp4): 36.3 ml LVAd ap4: 22.1 cm2 LVAd ap2: 25.1 cm2 LVLd ap4: 7.6 cm LVLd ap2: 7.9 cm EDV(MOD-sp4): 53.9 ml EDV(MOD-sp2): 66.0 ml EDV(sp4-el): 54.8 ml EDV(sp2-el): 67.6 ml LVAs ap4: 13.7 cm2 LVAs ap2: 14.7 cm2 LVLs ap4: 7.1 cm LVLs ap2: 7.0 cm ESV(MOD-sp4): 22.9 ml ESV(MOD-sp2): 26.5 ml ESV(sp4-el): 22.7 ml ESV(sp2-el): 25.9 ml EF(MOD-sp4): 57.6 % EF(MOD-sp2): 59.8 % EF(sp4-el): 58.6 % SV(MOD-sp4): 31.1 ml SV(MOD-sp2): 39.5 ml SV(sp4-el): 32.1 ml LA A4 area: 14.8 cm2 LA dimension(2D): 3.4 cm RA A4 area: 12.0 cm2 TAPSE: 2.3 cm Time Measurements MV dec time: 0.18 sec Doppler Measurements & Calculations MV E max ector: 84.1 cm/sec Lat Peak E' Ector: 14.0 cm/sec Med Peak E' Ector: 10.5 cm/sec MV A max ector: 66.0 cm/sec E/E' lat: 6.0 E/E' med: 8.0 MV E/A: 1.3 MV V2 max: 95.9 cm/sec MV P1/2t max ector: 94.4 cm/sec Ao V2 max: 122.1 cm/sec MV max P.7 mmHg MV P1/2t: 68.2 msec Ao max P.0 mmHg MV V2 mean: 46.5 cm/sec Ao V2 mean: 84.5 cm/sec MV mean P.1 mmHg MV dec slope: 405.5 cm/sec2 Ao mean P.2 mmHg MV V2 VTI: 28.4 cm MVA(P1/2t): 3.2 cm2 Ao V2 VTI: 28.3 cm AV (velocity ratio): 0.89 LV V1 max: 115.9 cm/sec PA V2 max: 83.9 cm/sec TR max ector: 245.5 cm/sec LV V1 max P.4 mmHg PA V2 mean: 61.9 cm/sec TR max P.1 mmHg LV V1 mean P.7 mmHg LV V1 mean: 76.5 cm/sec LV V1 VTI: 25.1 cm ECHO/Echo Complete W/ Contrast Interpretation Summary Normal LV size. Left ventricular systolic function is normal. The left ventricular ejection fraction is 60 %. Mild (1+) tricuspid valve insufficiency. Contrast injection was performed. Ordering Physician: Justyna Bryant Referring Physician: TRUDY PCP Performed By: Arianne Mobley, SANTACS, RVT
--- NOTE | 2024-02-16 14:17 | STRESSREP ---
Stress Test Report Exercise myocardial perfusion stress test. 53-year-old lady with a history of chest pain Stress protocol: Resting EKG demonstrates normal sinus rhythm with a rate of 49 bpm resting blood pressure is 110/80 mmHg. The patient exercised according to the regular [employer] protocol for a total duration of 9 minutes attaining a maximum heart rate of 155 bpm which was 91% of maximum predicted heart rate; the maximum workload was 10.1 metabolic equivalents. At rest there were no ST or T wave changes noted to suggest ischemia and at peak exercise upsloping ST changes only were noted which did not meet the criteria for ischemia. No clinical angina was noted the test was terminated due to the target heart rate being achieved/fatigue. The peak blood pressure was 140/70 mmHg. Rate-pressure product was 21,700. Myocardial perfusion protocol. 11.5 mCi of technetium 99m sestamibi was injected at rest. The patient exercised according to regular [employer] protocol for total duration of 9 minutes and at peak exercise 33.7 mCi of technetium 99m sestamibi was injected stress images were obtained stress and rest images were reconstructed in comparing the short axis vertical long and horizontal long axis. Gated images were also obtained. Perfusion SPECT analysis: Review of the stress images demonstrate normal uptake of tracer noted in all areas of the myocardium. The resting images similarly demonstrate normal uptake of tracer noted in all areas of the myocardium. No areas of reversibility are noted to suggest ischemia no previous infarct was noted. Gated SPECT analysis: The gated ejection fraction is 72%. Conclusion: Normal exercise myocardial perfusion stress test at a high workload Preserved ejection fraction.
== END | disposition home or self-care (01) ==
PROVIDERS: Referring Provider Nurse Practitioner Gerontology; Visit Provider Nurse Practitioner Gerontology
DX: I34.1 Nonrheumatic mitral (valve) prolapse (principal); I34.0 Nonrheumatic mitral (valve) insufficiency; R07.9 Chest pain, unspecified
CPT/HCPCS: 78452; 93017; 93306; A9500; Q9957; A4216; C8929

== ENCOUNTER → 2024-07-28 | Outpatient (CLI) | payer OTHER, SELFPAY ==
[2024-07-28 09:58] LABS: Absolute Lymphocyte Count 1.91 X10^3/uL (0.83-4.51); Absolute Neutrophil Count 2.6 X10^3/uL (2.0-7.7); Basophil# 0.03 X10^3/uL; Basophil% 0.6 % (0-1); Eosinophil# 0.17 X10^3/uL; Eosinophils% 3.3 % (0-5); Hematocrit 47.2 % (37-47); Hemoglobin 15.7 g/dL (12.0-15.0); Lymphocyte # 1.91 X10^3/ul (0.83-4.51); Lymphocyte % 37.2 % (19-41); Mean Corp Hgb Conc 33.3 g/dL (32-36); Mean Corpuscular Hgb 31.9 pg (27.0-32.0); Mean Corpuscular Volume 95.9 fL (81-99); Mean Platelet Vol. 10.1 fl (6.2-12.0); Monocyte% 7.8 % (0-10); NRBC Flagged by Analyzer 0 % (0-5); Neutrophil # 2.61 X10^3/uL (2.7-7.7); Neutrophil % 50.9 % (47-70); Platelet Count 229 K/mm3 (150-450); RBC Distribution Width CV 11.6 % (11.6-14.6); RBC Distribution Width SD 40.7 fl (35.1-43.9); Red Blood Count 4.92 M/mm3 (4.2-5.4); White Blood Count 5.1 K/mm3 (4.4-11.0)
[2024-07-28 10:46] LABS: ALB/GLOB Ratio 1.1 RATIO (0.9-2.4); AST(SGOT) 16 U/L (15-37); Alanine Aminotransfer ALT/SGPT 13 U/L (13-56); Albumin, Serum 3.9 g/dL (3.2-5.0); Alkaline Phosphatase 76 U/L (45-117); Anion Gap 3 (5-15); BUN 18 mg/dL (7-18); BUN/Creat Ratio 18.9 RATIO (10-20); Chloride 105 mmol/L (98-107); Cholesterol 194 mg/dL (200); Creatinine, Serum 0.95 mg/dL (0.55-1.02); EST Glomerular Filtration Rate 65 mL/min (>60); Est Glom Filt Rate - Afr Amer 79 mL/min (>60); Ferritin 43 ng/mL (8-252); Globulin 3.6 g/dL (2.2-4.2); Glucose 91 mg/dL (74-106); High Density Lipoprotein 66 mg/dL; Iron 91 ug/dL (50-170); Potassium 4.4 mmol/L (3.5-5.1); Protein, Total 7.5 g/dL (6.4-8.2); Sodium Level 140 mmol/L (136-145); Triglycerides 95 mg/dL; Very Low Density Lipoprotein 19 mg/dL (5-40)
[2024-07-30 08:16] LABS: Vitamin B12 401 pg/mL (211-911); Vitamin D,25 Hydroxy 42.5 ng/mL
== END | disposition home or self-care (01) ==
LOC: LAB 08:53
PROVIDERS: Referring Provider Nurse Practitioner Family; Visit Provider Nurse Practitioner Family
DX: Z00.01 Encounter for general adult medical examination with abnormal findings (principal); R53.83 Other fatigue
CPT/HCPCS: 36415; 80053; 80061; 82306; 82607; 82728; 83540; 84439; 84443; 85025

== ENCOUNTER 2025-02-13 07:56 | Day surgery (SDC) | payer OTHER, SELFPAY ==
--- NOTE | 2025-02-08 18:20 | PAT.ANESEVAL ---
Pre-Assessment Diagnosis/Proposed Procedure Planned Operative Procedure(s): Colonoscopy - Open Access Anesthesia History Anesthesia History - guest services officer: Anesthesia History - guest services officer Hx Hospitalization No 02/08/25 15:08 Any Problems With Anesthesia No 02/08/25 15:08 Cholinesterase deficiency No 02/08/25 15:08 You/Your Family Experience No 02/08/25 15:08 fever (hyperthermia) with Relationship Recent Exposure to Contagious Disease Does patient have nerve No 02/08/25 15:08 stimulator Patient instructed to have device shut off --Does patient have Pacemaker or ICD? When Was Last Pacemaker Check QUESTION #4 FULL TEXT: You/Your Family Experience fever (hyperthermia) with Anesthesia Last Oral Intake Last Oral intake: Last Oral Intake NPO since Meds taken in AM with sips of water? Meds patient instructed to take am of surgery PONV PONV - guest services officer: PONV - guest services officer Female Yes 02/08/25 15:08 HX of Motion Sickness Yes 02/08/25 15:08 HX of N/V After Surgery Yes 02/08/25 15:08 Non-Smoker Yes 02/08/25 15:08 Duration of Surgery greater No 02/08/25 15:08 than 60 minutes Number of Risk Factors 4 02/08/25 15:08 PONV Score Severe Risk 02/08/25 15:08 Height & Weight Height & Weight: Anesthesia: Height & Weight Height 5 ft 2 in 08/15/24 08:57 Respiratory Assessment Respiratory Assessment - guest services officer: Respiratory Tract Infection Hx - guest services officer Hx Respiratory Tract Infection No 02/08/25 15:08 STOP Sleep Apnea STOP Sleep Apnea - guest services officer: STOP Sleep Apnea - guest services officer Hx Hypertension No 02/08/25 15:08 Hx Sleep Apnea No 02/08/25 15:08 CPAP BIPAP Do you snore loudly (louder No 02/08/25 15:08 than talking or can be heard Do you often feel tired/ No 02/08/25 15:08 fatigued/ sleepy during daytime? Has anyone observed you stop No 02/08/25 15:08 breathing during sleep? STOP Results Negative 02/08/25 15:08 QUESTION #5 FULL TEXT : Do you snore loudly (louder than talking or can be heard through closed doors)? 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 Specify any problems Hx of Preganancy in last 3 No 02/08/25 15:08 Months Nurse Filling Out Transfusion JZOLLINGE 02/08/25 15:08 & Questions: Date: 02/08/25 02/08/25 15:08 Time: 15:12 02/08/25 15:08 Patient unable to answer at this time (ie. confused, unrespo /Reproduction History /Reproductive History - guest services officer: /Reproductive Hx- guest services officer Hx Now No 02/08/25 15:08 Gestational Age (in weeks): EDC: Hx Hx Para Hx Section SAB No 02/08/25 15:08 PFSH Medical History (Updated 02/08/25 @ 15:08 by Humera Andre) Wears glasses Wears contact lenses Alcohol use Non-smoker Cardiology follow-up encounter Palpitations Nonrheumatic mitral valve regurgitation Microcalcification of left breast on mammogram Mitral valve prolapse Home Medications ?Medication ?Instructions ?Recorded ?Last Taken ?Type biotin 1 mg capsule 1 mg PO DAILY 04/09/20 Unknown History Lactobacillus acidophilus 1 tab PO ONCE 08/15/24 Unknown History (Acidophilus chewable tablet) calcium 600 mg-D3 20 mcg-magnesium 1 tab PO QDAY 08/15/24 Unknown History 50 mg-copper 1 [id number] tablet (Caltrate-D3 Plus Minerals) Allergy/AdvReac Type Severity Reaction Status Date / Time No Known Allergies Allergy Verified 02/08/25 15:03 Family History (Updated 08/15/24 @ 08:53 by Dimple Ctoton) Son Asthma Aunt Breast cancer Grandfather Colon cancer At 89yrs, paternal Mother Diabetes Hypertension Surgical History History of wisdom tooth extraction Social History (Updated 08/15/24 @ 08:53 by Dimple Cotton) household members: spouse current occupational status: employed Smoking Status: Never smoker alcohol intake: current alcohol intake frequency: holidays/special occasions only substance use type: does not use caffeine: Yes (Occasionally) Type: tea Audit: Pertinent Findings Pertinent Findings EKG Perinent findings: December 26, 2023. Normal sinus rhythm with sinus arrhythmia. Stress test pertinent findings: February 16, 2024. EF is 72%. No areas of reversibility to suggest ischemia. No previous infarct. Echo (EF%) pertinent findings: February 16, 2024. EF of 60%. PASP of 28 mmHg. No aortic stenosis is noted. Normal mitral valve. Consult pertinent findings: January 06, 2024. Manny STYLES-C. 1. Nonrheumatic mitral valve regurgitation?chronic-echo from 2020 showed EF of 60% and mild mitral regurgitation. Will repeat echo to reassess. (See above) 2. Palpitations?chronic-patient has occasional palpitations influenced by stress sleep and caffeine. Continue to monitor at this time. 3. Chest pain?[id number] chest pain that radiates to her left arm back and into her neck. Will obtain treadmill nuclear stress test to assess for ischemia. (See above) Recommendation Anesthesia Recommendation Anesthesia recommendation: OPTIMIZED for anesthesia
[2025-02-13] VITALS (7 sets, daily range): BP systolic 100–122; BP diastolic 62–69; PULSE 56–83; RESP 16–18; TEMP 36.1–36.8; O2SAT 96–100; BMI 25.2
--- NOTE | 2025-02-13 08:21 | PCM.HP.STD ---
[facility] - General General Date of Admission: 02/13/25 Date of Service: 02/13/25 Chief Complaint: Screening colonoscopy [facility] Narrative CHUN HERNANDES, is a 54 F who presents today for screening colonoscopy. She has never had colonoscopy in the past. She has a family history of colon cancer. She is not having any abdominal pain, nausea, vomiting or diarrhea. Overall she is in very good health. She does not take any medicines on a daily basis. [facility] Medical History Wears glasses Wears contact lenses Alcohol use Non-smoker Cardiology follow-up encounter Palpitations Nonrheumatic mitral valve regurgitation Microcalcification of left breast on mammogram Mitral valve prolapse Home Medications ?Medication ?Instructions ?Recorded ?Last Taken ?Type biotin 1 mg capsule 1 mg PO DAILY 04/09/20 02/11/25 History Lactobacillus acidophilus 1 tab PO ONCE 08/15/24 02/11/25 History (Acidophilus chewable tablet) calcium 600 mg-D3 20 mcg-magnesium 1 tab PO QDAY 08/15/24 02/11/25 History 50 mg-copper 1 uk-sbes-evjl tablet (Caltrate-D3 Plus Minerals) Allergy/AdvReac Type Severity Reaction Status Date / Time No Known Allergies Allergy Verified 02/13/25 08:19 Family History Son Asthma Aunt Breast cancer Grandfather Colon cancer At 89yrs, paternal Mother Diabetes Hypertension Surgical History History of wisdom tooth extraction Social History household members: spouse current occupational status: employed Smoking Status: Never smoker alcohol intake: current alcohol intake frequency: holidays/special occasions only substance use type: does not use caffeine: Yes (Occasionally) Type: tea ROS Constitutional Constitutional: Denies fatigue, fever(s), poor appetite, weight gain or weight loss Gastrointestinal Gastrointestinal: Denies belching, bloating, change in bowel habits, change in stool character, chewing difficulty, coffee ground emesis, constipation, cramping, diarrhea, dyspepsia, dysphagia, early satiety, excessive flatus, fecal incontinence, heartburn, hematemesis, hematochezia, hemorrhoids, loose stools, melena, nausea, odynophagia, rectal bleeding, tenesmus, vomiting or weight changes Physical Exam Const alert, oriented x3, no apparent distress and healthy appearing General Appearance: cooperative GI normal to inspection, nondistended, normoactive bowel sounds, soft to palpation, non-tender and non-distended Percussion: normal to percussion Rectal Exam: deferred Assessment & Plan Assessment/Plan (1) Encounter for screening for malignant neoplasm of colon: PLAN: She was explained alternatives, risk and benefits include not withstanding bleeding, infection, sepsis, perforation, need for return to . She will have an ASA of 3.
--- OUTSIDE RECORDS SUMMARY | 2025-02-13 08:21 | XMS RPT_ITS | CCD ---
Author Organization [facility] Care Team Providers Care Lightning Protection Installer Name Role Phone YONATHAN BERKOWITZ Attending Unavailable IRA MILIAN Primary Care Unavailable Unavailable Primary Care Provider Unavailabl e Ira Milian Primary Care Provider [phone] Ira Milian Primary Care Provider Ira Milian CNP Primary Care Provider [phone] KAE ABEL Referring Unavailable IRA MILIAN Primary Care Unavailable KAE ABEL Attending Unavailable IRA MILIAN Primary Care Unavailable Care Physician, No Primary Primary Care Unava ilable Dimple Cotton Attending Unavailable Care Physician, No Primary Primary Care Unava ilable Justyna Bryant NP Attending Unavailable Care Physician, No Primary Primary Care Unava ilable Justyna Bryant NP Attending Unavailable Herman Landis Attending Unavailable Care Physician, No Primary Primary Care Unava ilable Care Physician, No Primary Primary Care Unava ilable Care Physician, No Primary Referring Unava ilable Td Hidalgo Attending Unavailable Care Physician, No Primary Primary Care Unava ilable Laila Barakat Referring Unavailable Laila Barakat Attending Unavailable Care Physician, No Primary Primary Care Unava ilable Justyna Bryant NP Referring Unavailable Justyna Bryant NP Attending Unavailable Medications Current Medications Medication Drug Class(es) Dates Sig (Normalized) Sig (Original) amoxicillin 875 mg oral tablet (1 source) Penicillin-class Antibacterial Start: 03-13-2023 End: 03-20-2023 take 1 tablet by mouth twice daily amoxicillin (AMOXIL) 875 mg tablet Indications: Other acute nonsuppurative otitis media of left ear, recurrence not specified Take 1 tablet by mouth twice daily for 7 days. 14 tablet 0 03/13/2023 03/20/2023 Active Comment on above: Take 1 tablet by [facility] twice daily for 7 days. biotin 1 mg oral capsule (13 sources) Start: 04-09-2020 take 1 mg by mouth once daily Biotin Active 1 MG PO DAILY April 09, 2020 12:00am Start: 08-22-2017 End: 08-22-2017 Biotin Discontinued MCG PO D ec2016 1:00am August 22, 2017 4:28pm Start: 08-22-2017 End: 04-09-2020 take 2500 ug by mouth once daily Biotin Discontinued 2500 MCG PO daily August 22, 2017 1:00am April 09, 2020 9:09am BIOTIN ORAL Take by mouth. Active BIOTIN ORAL Take by mouth. 0 Active Comment on above: Take by mouth. calcium phos,dibas-vitamin D3 100 mg calcium- 3 mcg tab (3 sources) Start: 11-09-2023 calcium phos,dibas-vitamin D3 100 mg calcium- 3 mcg tab 11/09/2023 Active predniSONE 20 mg oral tablet (1 source) Start: 03-23-2023 End: 03-28-2023 take 2 tablets by mouth once daily predniSONE (DELTASONE) 20 mg tablet Indications: ETD (Eustachian tube dysfunction), left Take 2 tablets by mouth once daily for 5 days. 10 tablet 0 03/23/2023 03/28/2023 Active Comment on above: Take 2 tablets by [facility] once daily for 5 days. Completed/Discontinued Medications Medication Drug Class(es) Dates Sig (Normalized) Sig (Original) fluticasone propionate 0.05 mg/actuat metered dose nasal spray (1 source) Corticosteroid Start: 03-23-2023 take 2 spray(s) by mouth once daily fluticasone (FLONASE) 50 mcg/actuation nasal spray Indications: ETD (Eustachian tube dysfunction), left Use 2 Sprays in each nostril once daily. Rinse mouth after use. 1 Each 0 03/23/2023 Active Comment on above: Use 2 Sprays in each nostril once daily. Rinse mouth after use. 12 hr guaiFENesin 1200 mg / pseudoephedrine hydrochloride 120 mg extended release oral tablet (2 sources) alpha-Adrenergic Agonist Start: 08-21-2015 take 1 tablet by mouth every twelve hours as needed for congestion Pseudoephedrine-g uaiFENesin 120-1,200 mg Tb12 Take 1 tablet by mouth every 12 hours as needed ( FOR SINUS CONGESTION). 20 tablet 0 08/21/2015 Active Comment on above: Take 1 tablet by diana th every 12 hours as needed ( FOR SINUS CONGESTION). metoprolol tartrate 25 mg oral tablet (12 sources) beta-Adrenergic Sweta Start: 04-09-2020 End: 04-08-2021 take 25 mg by mouth twice daily Metoprolol Tartrate Discontinued 25 MG PO TWICE A DAY 60 April 09, 2020 12:20pm April 08, 2021 11:42am Start: 08-22-2017 End: 04-09-2020 take 50 mg by mouth once daily Metoprolol Tartrate Dis continued 50 MG PO daily August 22, 2017 1:00am April 09, 2020 9:10am Start: 08-22-2017 End: 08-22-2017 take 2 tablets by mouth once daily Metoprolol Tartrate Discontinued 0 PO daily August 22, 2017 1:00am August 22, 2017 4:26pm takes two tablets daily. Not sure of dose take 0.5 dose by diana th in the morning METOPROLOL TARTRATE ORAL Take 25 mg by mouth. One pill at bedtime and 1/2 pill in morning 0 Active Comment on above: Take 25 mg by mouth. One pill at bedtime and 1/2 pill in morning Problems Active Problems Problem Classification Problem Date Documented Date Episodic/Chronic Cardiac dysrhythmias (2 sources) Palpitations; Translations: [Palpitations] 04-09-2020 Episodic Heart valve disorders (5 sources) Non-rheumatic mitral regurgitation ; Translations: [Nonrheumatic mitral (valve) insufficiency] Onset: 02-24-2024 04-09-2020 Chronic Immunizations and screening for infectious disease (5 sources) Patient encounter status; Translations: [Encounter for screening for human papillomavirus (HPV)] 10-21-2023 Episodic Nonmalignant breast conditions (3 sources) Breast finding ; Translations: [Dense breast tissue] 10-21-2023 Episodic Nonspecific chest pain (1 source) Atypical chest pain; Translations: [Other chest pain] 12-26-2023 Episodic Other screening for suspected conditions (not mental disorders or infectious disease) (1 source) Encounter for screening mammogram for malignant neoplasm of breast; Translations: [Encounter for screening mammogram for malignant neoplasm of breast] Onset: 10-24-2024 Episodic Other upper respiratory infections (2 sources) Sore throat symptom; Translations: [Acute pharyngitis, unspecified] Episodic Otitis media and related conditions (2 sources) Acute secretory otitis media; Translations: [Other acute nonsuppurative otitis media, left ear] Episodic Prolapse of female genital organs (1 source) Third degree uterine prolapse; Translations: [Complete uterovaginal prolapse] Chronic Residual codes; unclassified (2 sources) Family history of hyperlipidemia; Translations: [Family history of other disorder of lipoprotein metabolism and other lipidemia] 04-08-2021 Episodic Residual codes; unclassified (1 source) Postmenopausal state; Translations: [Asymptomatic menopausal state] 10-24-2024 Episodic Past or Other Problems Problem Classification Problem Date Documented Da te Episodic/Chronic Unclassified (3 sources) Patient encounter status 10-24-2024 Unclassified (2 sources) Breast finding 10-24-2024 Results Test Name Value Interpretation Reference Range Facility MR/PAT.Laron 02-08-2025 MR/PAT.[facility] Medical Records Department [address] [place] [address] PAT - Anesthesia 02/08/25 1820 MR#: [id number] Acct: [id number] Name: CHUN HERNANDES Rep #: [id number] : 1970 54 From: Stevenson Mcgee MD PCP: Care Physician,No Primary Status:PRE [facility] Y Race: C Location: [facility] Pre-Assessment Diagnosis/Proposed Procedure Planned Operative Procedure(s): Colonoscopy - Open Access Anesthesia History Anesthesia History - mechanic recovery: Anesthesia History - mechanic recovery Hx Hospitalization No 02/08/25 15:08 Any Problems With Anesthesia No 02/08/25 15:08 Cholinesterase deficiency No 02/08/25 15:08 You/Your Family Experience No 02/08/25 15:08 fever (hyperthermia) with Relationship Recent Exposure to Contagious Disease Does patient have nerve No 02/08/25 15:08 stimulator Patient instructed to have device shut off --Does patient have Pacemaker or ICD? When Was Last Pacemaker Check QUESTION #4 FULL TEXT: You/Your Family Experience fever (hyperthermia) with Anesthesia Last Oral Intake Last Oral intake: Last Oral Intake NPO since Meds taken in AM with sips of water? Meds patient instructed to take am of surgery PONV PONV - mechanic recovery: PONV - mechanic recovery Female Yes 02/08/25 15:08 HX of Motion Sickness Yes 02/08/25 15:08 HX of N/V After Surgery Yes 02/08/25 15:08 Non-Smoker Yes 02/08/25 15:08 Duration of Surgery greater No 02/08/25 15:08 than 60 minutes Number of Risk Factors 4 02/08/25 15:08 PONV Score Severe Risk 02/08/25 15:08 Height Weight Height Weight: Anesthesia: Height Weight Height 5 ft 2 in 08/15/24 08:57 Respiratory Assessment Respiratory Assessment - mechanic recovery: Respiratory Tract Infection Hx - mechanic recovery Hx Respiratory Tract Infection No 02/08/25 15:08 STOP Sleep Apnea STOP Sleep Apnea - mechanic recovery: STOP Sleep Apnea - mechanic recovery Hx Hypertension No 02/08/25 15:08 Hx Sleep Apnea No 02/08/25 15:08 CPAP BIPAP Do you snore loudly (louder No 02/08/25 15:08 than talking or can be heard Do you often feel tired/ No 02/08/25 15:08 fatigued/ sleepy during daytime? Has anyone observed you stop No 02/08/25 15:08 breathing during sleep? STOP Results Negative 02/08/25 15:08 QUESTION #5 FULL TEXT : Do you snore loudly (louder than talking or can be heard through closed doors)? Tobacco Use History Tobacco Use History - mechanic recovery: Tobacco Use History - mechanic recovery Tobacco Use Smoking Status Never smoker 02/08/25 15:08 Hx Tobacco Use No 02/08/25 15:08 Years Smoking Packs Smoked per Day Smoking Cessation Date was within the last 15 years Hx Smoking Cessation Date Hx Smoking Cessation Counseling Hematologic Medial History Hematologic Hx - mechanic recovery: Hematologic Medical Hx - spice fumigator Hx of Blood Transfusion No 02/08/25 15:08 Hx of Transfusion in last 3 No 02/08/25 15:08 Months Date of Last Transfusion (if within last 3 months) Ever experience any problems No 02/08/25 15:08 with transfusion(s)? Specify any problems Hx of Preganancy in last 3 No 02/08/25 15:08 Months Nurse Filling Out Transfusion JZOLLINGE 02/08/25 15:08 Questions: Date: 02/08/25 02/08/25 15:08 Time: 15:12 02/08/25 15:08 Patient unable to answer at this time (ie. confused, unrespo /Reproducti on History /Reproducti ve History - mechanic recovery: /Reproducti ve Hx- mechanic recovery Hx Now No 02/08/25 15:08 Gestational Age (in weeks): EDC: Hx Hx Para Hx Section SAB No 02/08/25 15:08 [facility] Medical History (Updated 02/08/25 @ 15:08 by Humera Andre) Wears glasses Wears contact lenses Alcohol use Non-smoker Cardiology follow-up encounter Palpitations Nonrheumatic mitral valve regurgitation Microcalcification of left breast on mammogram Mitral valve prolapse Home Medications ???Medication ???Instructions ???Recorded ???Last Taken ???Type biotin 1 mg capsule 1 mg PO DAILY 04/09/20 Unknown His tory Lactobacillus acidophilus 1 tab PO ONCE 08/15/24 Unknown His tory (Acidophilus chewable tablet) calcium 600 mg-D3 20 mcg-magnesium 1 tab PO QDAY 08/15/24 Unknown H istory 50 mg-copper 1 [id number] tablet (Caltrate-D3 Plus Minerals) Allergy/AdvReac Type Severity Reaction Status Date / Time No Known Allergies Allergy Verified 02/08/25 15:03 Family History (Updated 08/15/24 @ 08:53 by Dimple Cotton) Son Asthma Aunt Breast cancer Grandfather Colon cancer At 89yrs, paternal Mother Diabetes (more content not included)... [facility] 10-25-2024 [facility] Telephone (OBGYWM) CHUN HERNANDES ([id number]) 1970 F Date Time Provider Department 10/25/24 KAE ABEL OBGYWM During your visit today, we recorded the following information about you: Colleen Olvera RN 10/25/2024 9:28 AM Signed Results reviewed. There is no evidence of malignancy in either breast. Patient has noted dense breast tissue. She has <15% lifetime risk of developing breast cancer but it is recommended for further screening with a breast ultrasound. Order placed. Please assist patient with scheduling. SHANICE Rosales Tara, RN 10/25/2024 9:28 AM Signed Left message for patient to call office. MALLIKA Uriostegui Annalee, LPN 10/25/2024 11:10 AM Signed Patient notified Allergies As of Date: 10/25/2024 (No Known Allergies) Date Reviewed: 10/24/2024 Reviewed by: Kae Abel APRN.CNM - Fully Assessed Reason for Visit: Mammogram results [Other] Prescriptions as of 10/25/2024 - calcium phos,dibas-vitamin D3 100 mg calcium- 3 mcg tab - BIOTIN ORAL Take by mouth. Problem List As Of Date: 10/25/2024 (None) Encounter Status:Closed by ANAID SEGAL on 10/25/24 [facility] CNOVon 10-24-2024 CNOV Office Visit (OBGYWM) GRETACHUN Tk ([id number]) 1970 F Date Time Provider Department 10/24/24 11:30 AM KAE ABEL During your visit today, we recorded the following information about you: Blood pressure Weight Height Last Period 11668 65.3 kg 1.575 m 02/17/24 Kae Abel APRN.CNM 10/24/2024 4:05 PM Signed Chun is a 54 year old who presents for an annual gynecologic exam without complaints. Postmenopausal: Yes HRT use: No Still get period: No Menopause symptoms: Hot flashes; Night sweats Time with current partner: 27 years Number of lifetime partners: 1 control frequency: Always HPV vaccine: No; Last pap smear: 10/13/2023 - normal History of abnormal pap: No, all prior PAP smears have been normal Bothersome pelvic pain: No Last mammogram: 2024 pending History of abnormal mammogram: Yes - hx of breast biopsy was negative OB History Gravida3 Para3 Term3 Preterm0 AB0 Living3 SAB0 IAB0 Ectopic0 Multiple0 Live Births2 Lining Presser History LMP: 02/17/2024, Perimenopausal Age at Menarche: 13 Age at First : Age at Menopause: Lining Presser History Comments: Sexual Activity: Yes; Male Contraception: Vasectomy PAST MEDICAL HISTORY Diagnosis Date infertility 2002 was on clomid Mitral valve disorders(424.0) Mitral valve prolaspe PAST SURGICAL HISTORY Procedure Laterality Date CATH AND SALINE/CONTRAST SONOHYSTER/HYSTEROSA LPI EXTRACTION, ERUPTED TOOTH OR EXPOSED ROOT (ELEVATION AND/OR FORCEPS REMOVAL) WISDOM TEETH FAMILY HISTORY Problem Relation Age of Onset Diabetes Mother TYPE 2 Hypertension Mother Hypertension Maternal Grandmother Cancer Maternal Grandfather SKIN Hypertension Maternal Grandfather Colon Cancer Maternal Grandfather 89 Heart Paternal Grandmother Breast Cancer Other MGGM Breast Cancer Other 50 Triple negative SOCIAL HISTORY Social History Tobacco Use Smoking status: Never Smokeless tobacco: Never Vaping Use Vaping status: Never Used Substance Use Topics Alcohol use: Yes Drug use: No REVIEW OF SYSTEMS Abdomen: No abdominal pain, nausea, vomiting, diarrhea, or constipation. No bloating, early satiety, indigestion, or increased flatulence. Bladder: No dysuria, gross hematuria, urinary frequency, urinary urgency, or incontinence Breast: No breast lumps, nipple d/c, overlying skin changes, redness or skin retraction Allergies and current medication updated:Yes SENSITIVE EXAM: The sensitive examination was discussed with the Patient or Patient's Authorized Dye Colorist Dyer. As applicable, any other physician, advance practice provider, medical student, or other health professional student that will be observing or involved in the sensitive examination for educational or training purposes was discussed with the Patient or Authorized Dye Colorist Dyer. The Patient or Authorized Dye Colorist Dyer has agreed to proceed with the sensitive examination. (Sensitive examination includes inspection and/or palpation of the breasts, pelvis, prostate and anorectal regions). EXAM: BP 116/68 Ht 5' 2 (1.58m) Wt 144 lb (65.3kg) LMP 02/17/2024 BMI 26.33 kg/(m2). GENERAL: pleasant, female in no apparent distress HEENT: Normocephalic, atraumatic, mucus membranes moist, and no lesions NECK: Supple, full range of motion, no adenopathy, and thyroid normal DERMATOLOGY: Normal, without lesions, non-icteric, and non-hirsute BREAST: deferred CHEST: Normal inspiratory effort ABDOMEN: soft, non-tender, and no masses PELVIC: external genitalia normal, normal Bartholin's glands, urethra, Otsego's glands, no vulvar lesions, no cervical lesions, good vaginal support, physiologic discharge present, normal appearing perineal body and perianal region BIMANUAL: uterus normal size, shape and consistency, no adnexal masses, non-tender, and no cervical motion tenderness RECTOVAGINAL: deferred. NEURO: alert and oriented x3,exam grossly non-focal EXTREMITIES: normal ASSESSMENT/PLAN: 1) Health maintenance: Pap/HPV up to date. Mammogram up to date Nutrition, exercise and routine health maintenance exams reviewed. Calcium/Vitamin D supplementation information provided. Colon cancer screening: scheduled TSH/lipids/glucose: followed by PCP 2) Follow up one year or sooner as needed SHANICE Rosales Courtney, APRN.CNM 10/24/2024 11:41 AM Signed Non-Hormonal Vaginal Lubricants AND Vaginal Moisturizers Symptoms of vaginal dryness can be managed by the regular use of vaginal moisturizing agents with supplemental use of vaginal lubricants for sexual intercourse. . Use of vaginal moisturizers and lubricants alone is effective treatment for vaginal dryness or dyspareunia (pain with intercourse) in some patients. Vaginal lubrications- Vaginal lubricants are designed to reduce friction and (more content not included)... Normal [facility] DBT Breast - bilateral scree meetbatooln 10-24-2024 IMPRESSION: There is no mammographic evidence of malignancy in either breast. Routine screening mammogram is recommended. Annual mammogram will be due in 1 year. BI-RADS Category 1: Negative RISK: Based on the Tyrer-Cuzick (TC) risk assessment model, this patient has a 9.9% lifetime risk of developing breast cancer, meaning they are at average risk for developing breast cancer. However, this is only an estimate based on available history provided on the patient's questionnaire. We encourage all patients to talk with their providers about these results, further recommendations for managing breast health, and appropriate supplemental screening options if the patient has dense breast tissue. Interpreting Radiologist: Francisco Jacobsen M.D. Electronically signed on: 10/24/2024 Ambulance Driver Paramedic: ROSY Transcribe Date/Time: Oct 24 2024 10:34A Dictated by: FRANCISCO JACOBSEN MD This examination was interpreted and the report reviewed and electronically signed by: FRANCISCO JACOBSEN MD on Oct 24 2024 12:33PM [facility] DIVISION OF RADIOLOGY * * *Final Report* * * DATE OF EXAM: Oct 24 2024 10:54AM [facility] 0582 - [facility] SCREENING W LUANNE / PROCEDURE REASON: Encounter for screening mammogram for malignant neoplasm of breast * * * * Physician Interpretation * * * * RESULT: [place] [address] #[id number] - [facility] SCREENING W LUANNE HISTORY: 54 year-old patient seen for screening and is asymptomatic in both breasts. Patient states no personal history of breast cancer. Patient states no personal history of ovarian cancer. COMPARISON STUDIES: The present examination has been compared to prior imaging studies dated 04/28/2016 (mammogram) and 10/21/2023 (mammogram). MAMMOGRAM TECHNIQUE: The study was acquired using full field digital technology and interpreted from soft copy. Digital Breast Tomosynthesis (DBT) images were obtained and used to assist in the interpretation of this examination. MAMMOGRAM FINDINGS: The breasts are heterogeneously dense, which may obscure small masses. No suspicious masses, calcifications or other abnormalities are seen in either breast. There are no significant interval changes. Stable biopsy clip left breast. DIVISION OF RADIOLOGY Provider, [facility] - 10/24/2024 * * *Final Report* * * DATE OF EXAM: Oct 24 2024 10:54AM [facility] 0582 - [facility] SCREENING W LUANNE / PROCEDURE REASON: Encounter for screening mammogram for malignant neoplasm of breast * * * * Physician Interpretation * * * * RESULT: [facility] [address] [id number] #[id number] - JANE[facility] SCREENING W LUANNE HISTORY: 54 year-old patient seen for screening and is asymptomatic in both breasts. Patient states no personal history of breast cancer. Patient states no personal history of ovarian cancer. COMPARISON STUDIES: The present examination has been compared to prior imaging studies dated 04/28/2016 (mammogram) and 10/21/2023 (mammogram). MAMMOGRAM TECHNIQUE: The study was acquired using full field digital technology and interpreted from soft copy. Digital Breast Tomosynthesis (DBT) images were obtained and used to assist in the interpretation of this examination. MAMMOGRAM FINDINGS: The breasts are heterogeneously dense, which may obscure small masses. No suspicious masses, calcifications or other abnormalities are seen in either breast. There are no significant interval changes. Stable biopsy clip left breast. IMPRESSION IMPRESSION: There is no mammographic evidence of malignancy in either breast. Routine screening mammogram is recommended. Annual mammogram will be due in 1 year. BI-RADS Category 1: Negative RISK: Based on the Tyrer-Cuzick (TC) risk assessment model, this patient has a 9.9% lifetime risk of developing breast cancer, meaning they are at average risk for developing breast cancer. However, this is only an estimate based on available history provided on the patient's questionnaire. We encourage all patients to talk with their providers about these results, further recommendations for managing breast health, and appropriate supplemental screening options if the patient has dense breast tissue. Interpreting Radiologist: Francisco Jacobsen M.D. Electronically signed on: 10/24/2024 Ambulance Driver Paramedic: ROSY Transcribe Date/Time: Oct 24 2024 10:34A Dictated by: FRANCISCO JACOBSEN MD This examination was interpreted and the report reviewed and electronically signed by: FRANCISCO JACOBSEN MD on Oct 24 2024 12:33PM [facility] Radiology Study observation (narrative) Andrea tirado [facility] DBT Breast - bilateral scree ningOrdered By: [facility] Provider on 10-24-2024 [facility] JANEY SCREENING W TOMOon 10-24 [facility] SCREENING W LUANNE * * *Final Report* * * DATE OF EXAM: Oct 24 2024 10:54AM [facility] 0582 - J[facility] SCREENING W LUANNE / PROCEDURE REASON: Encounter for screening mammogram for malignant neoplasm of breast * * * * Physician Interpretation * * * * RESULT: [facility] [address] [id number] #[id number] - JANEY SCREENING W LUANNE HISTORY: 54 year-old patient seen for screening and is asymptomatic in both breasts. Patient states no personal history of breast cancer. Patient states no personal history of ovarian cancer. COMPARISON STUDIES: The present examination has been compared to prior imaging studies dated 04/28/2016 (mammogram) and 10/21/2023 (mammogram). MAMMOGRAM TECHNIQUE: The study was acquired using full field digital technology and interpreted from soft copy. Digital Breast Tomosynthesis (DBT) images were obtained and used to assist in the interpretation of this examination. MAMMOGRAM FINDINGS: The breasts are heterogeneously dense, which may obscure small masses. No suspicious masses, calcifications or other abnormalities are seen in either breast. There are no significant interval changes. Stable biopsy clip left breast. IMPRESSION: There is no mammographic evidence of malignancy in either breast. Routine screening mammogram is recommended. Annual mammogram will be due in 1 year. BI-RADS Category 1: Negative RISK: Based on the Tyrer-Cuzick (TC) risk assessment model, this patient has a 9.9% lifetime risk of developing breast cancer, meaning they are at average risk for developing breast cancer. However, this is only an estimate based on available history provided on the patient's questionnaire. We encourage all patients to talk with their providers about these results, further recommendations for managing breast health, and appropriate supplemental screening options if the patient has dense breast tissue. Interpreting Radiologist: Francisco Jacobsen M.D. Electronically signed on: 10/24/2024 Ambulance Driver Paramedic: ROSY Transcribe Date/Time: Oct 24 2024 10:34A Dictated by: FRANCISCO JACOBSEN MD This examination was interpreted and the report reviewed and electronically signed by: FRNACISCO JACOBSEN MD on Oct 24 2024 12:33PM EST [id number] CN Normal [facility] CNPNon 10-03-2024 CNPN Telephone (OBGYWM) CHUN HERNANDES ([id number]) 1970 F Date Time Provider Department 10/03/24 KAE ABEL During your visit today, we recorded the following information about you: Pamella Guardado, MALLIKA 10/03/2024 2:14 PM Signed Patient has upcoming annual exam on 10/24. She would like to have mammogram on that same day. Please file pende order. Patient will need to be called back to schedule. MALLIKA Augustine Courtney, APRN.CNM 10/03/2024 4:30 PM Signed Orders signed. SHANICE Rosales Jennifer, RN 10/03/2024 4:33 PM Signed Please call patient and assist with scheduling mammogram. Thank you. Elaine Hua RN Allergies As of Date: 10/03/2024 (No Known Allergies) Date Reviewed: 10/13/2023 Reviewed by: Vanna Rodriguez MA - Fully Assessed Reason for Visit: Orders [681] Primary Visit Diagnosis:Encounter for screening mammogram for malignant neoplasm of breast [Z12.31] Order(s):JANEY SCREENING W LUANNE [[id number]] Order #: [id number] FUTURE Prescriptions as of 10/03/2024 - BIOTIN ORAL Take by mouth. Problem List As Of Date: 10/03/2024 (None) Encounter Status:Closed by KAE ABEL on 10/03/24 Normal [facility] Vitamin B12on 07-30-2024 Cobalamin (Vitamin B12) [Mass/Vol] 401 pg/mL Normal 211-911 [facility] Comment on above: Performed By: #### L 500.4100, L506.0400, L501.9520, L503.0105, L503.6550, L506.1000, L500.4050, L503.6150, L100.0100 ####[facility] [address] [place], [address] Vitamin D,25 Hydroxyon 07-30 Vitamin D 25-OH 42.5 ng/mL Normal [facility] Comment on above: Result Comment: Kristen min D 25(OH) Status Range Deficiency <20 ng/mL (50nmol/L) Insufficiency 20 - 30 ng/mL (50 - 75 nmol/L) Sufficiency 30 - 100 ng/mL (75 - 250 nmol/L) Toxicity >100 ng/mL (>250 nmol/L) Performed By: #### L 500.4100, L506.0400, L501.9520, L503.0105, L503.6550, L506.1000, L500.4050, L503.6150, L100.0100 ####[facility] [address] [place], [address] CBC W/Diff, Automatedon 07-13 Absolute Lymph 1.91 X10 3/uL Normal 0.83-4.51 [facility] Comment on above: Performed By: #### L 500.4100, L506.0400, L501.9520, L503.0105, L503.6550, L506.1000, L500.4050, L503.6150, L100.0100 #### [facility] [address] [place], [address] Absolute Neut 2.6 X10 3/uL Normal 2.0-7.7 [facility] Comment on above: Performed By: #### L 500.4100, L506.0400, L501.9520, L503.0105, L503.6550, L506.1000, L500.4050, L503.6150, L100.0100 #### [facility] [address] [place], [address] Basophils/100 WBC (Bld) 0.6 % Normal 0-1 [facility] Comment on above: Performed By: #### L 500.4100, L506.0400, L501.9520, L503.0105, L503.6550, L506.1000, L500.4050, L503.6150, L100.0100 #### [facility] [address] [place], [address] Eosinophils/100 WBC (Bld) 3.3 % Normal 0-5 [facility] Comment on above: Performed By: #### L 500.4100, L506.0400, L501.9520, L503.0105, L503.6550, L506.1000, L500.4050, L503.6150, L100.0100 #### [facility] [address] [place], [address] Erythrocyte distribution width (RBC) [Ratio] 11.6 % Normal 11.6-14.6 [facility] Comment on above: Performed By: #### L 500.4100, L506.0400, L501.9520, L503.0105, L503.6550, L506.1000, L500.4050, L503.6150, L100.0100 #### [facility] [address] [place], [address] Hematocrit (Bld) [Volume fraction] 47.2 % High 37-47 [facility] Comment on above: Performed By: #### L 500.4100, L506.0400, L501.9520, L503.0105, L503.6550, L506.1000, L500.4050, L503.6150, L100.0100 #### [facility] [address] [place], [address] Hemoglobin (Bld) [Mass/Vol] 15.7 g/dL High 12.0-15.0 [facility] Comment on above: Performed By: #### L 500.4100, L506.0400, L501.9520, L503.0105, L503.6550, L506.1000, L500.4050, L503.6150, L100.0100 #### [facility] [address], [address] IG% 0.200 Normal 0.0-0.9 [facility] Comment on above: Result Comment: IG% - Immature Granulocytes (promyelocytes, myelocytes and metamyelocytes) > 1% indicates that a LEFT SHIFT is Present. Performed By: #### L 500.4100, L506.0400, L501.9520, L503.0105, L503.6550, L506.1000, L500.4050, L503.6150, L100.0100 #### [facility] [address] [facility], [address] Lymphocytes/100 WBC (Bld) 37.2 % Normal 19-41 [facility] Comment on above: Performed By: #### L 500.4100, L506.0400, L501.9520, L503.0105, L503.6550, L506.1000, L500.4050, L503.6150, L100.0100 #### [facility] [address] [place], [address] MCH (RBC) [Entitic mass] 31.9 pg Normal 27.0-32.0 [facility] Comment on above: Performed By: #### L 500.4100, L506.0400, L501.9520, L503.0105, L503.6550, L506.1000, L500.4050, L503.6150, L100.0100 #### [facility] [address] [place], [address] MCHC (RBC) [Mass/Vol] 33.3 g/dL Normal 32-36 [facility] Comment on above: Performed By: #### L 500.4100, L506.0400, L501.9520, L503.0105, L503.6550, L506.1000, L500.4050, L503.6150, L100.0100 #### [facility] [address] [place], [address] MCV (RBC) [Entitic vol] 95.9 fL Normal 81-99 [facility] Comment on above: Performed By: #### L 500.4100, L506.0400, L501.9520, L503.0105, L503.6550, L506.1000, L500.4050, L503.6150, L100.0100 #### [facility] [address] [place], [address] Monocytes/100 WBC (Bld) 7.8 % Normal 0-10 [facility] Comment on above: Performed By: #### L 500.4100, L506.0400, L501.9520, L503.0105, L503.6550, L506.1000, L500.4050, L503.6150, L100.0100 #### [facility] [address] [place], [address] Neutrophils/100 WBC (Bld) 50.9 % Normal 47-70 [facility] Comment on above: Performed By: #### L 500.4100, L506.0400, L501.9520, L503.0105, L503.6550, L506.1000, L500.4050, L503.6150, L100.0100 #### [facility] [address] [place], [address] Nucleated RBC (Bld) [#/Vol] 0 10*3/uL Normal 0-5 [facility] Comment on above: Performed By: #### L 500.4100, L506.0400, L501.9520, L503.0105, L503.6550, L506.1000, L500.4050, L503.6150, L100.0100 #### [facility] [address] [place], [address] Platelet mean volume (Bld) [Entitic vol] 10.1 fL Normal 6.2-12.0 [facility] Comment on above: Performed By: #### L 500.4100, L506.0400, L501.9520, L503.0105, L503.6550, L506.1000, L500.4050, L503.6150, L100.0100 #### [facility] [address] [place], [address] Platelets (Bld) [#/Vol] 229 10*3/uL Normal 150-450 [facility] Comment on above: Performed By: #### L 500.4100, L506.0400, L501.9520, L503.0105, L503.6550, L506.1000, L500.4050, L503.6150, L100.0100 #### [facility] [address] [place], [address] RBC (Bld) [#/Vol] 4.92 10*6/uL Normal 4.2-5.4 [facility] Comment on above: Performed By: #### L 500.4100, L506.0400, L501.9520, L503.0105, L503.6550, L506.1000, L500.4050, L503.6150, L100.0100 #### [facility] [address] [place], [address] RDW SD 40.7 fl Normal 35.1-43.9 [facility] Comment on above: Performed By: #### L 500.4100, L506.0400, L501.9520, L503.0105, L503.6550, L506.1000, L500.4050, L503.6150, L100.0100 #### [facility] [address] [place], [address] WBC (Bld) [#/Vol] 5.1 10*3/uL Normal 4.4-11.0 [facility] Comment on above: Performed By: #### L 500.4100, L506.0400, L501.9520, L503.0105, L503.6550, L506.1000, L500.4050, L503.6150, L100.0100 #### [facility] [address] [place], [address] Comprehensive Metabolic Prof [facility] 07-28-2024 Albumin [Mass/Vol] 3.9 g/dL Normal 3.2-5.0 [facility] Comment on above: Performed By: #### L 500.4100, L506.0400, L501.9520, L503.0105, L503.6550, L506.1000, L500.4050, L503.6150, L100.0100 #### [facility] [address] [place], [address] Albumin/Globulin [Mass ratio] 1.1 {ratio} Normal 0.9-2.4 [facility] Comment on above: Performed By: #### L 500.4100, L506.0400, L501.9520, L503.0105, L503.6550, L506.1000, L500.4050, L503.6150, L100.0100 #### [facility] [address] [place], [address] ALK P 76 U/L Normal 45-117 [facility] Comment on above: Performed By: #### L 500.4100, L506.0400, L501.9520, L503.0105, L503.6550, L506.1000, L500.4050, L503.6150, L100.0100 #### [facility] [address] [place], [address] ALT [Catalytic activity/Vol] 13 U/L Normal 13-56 [facility] Comment on above: Performed By: #### L 500.4100, L506.0400, L501.9520, L503.0105, L503.6550, L506.1000, L500.4050, L503.6150, L100.0100 #### [facility] [address] [place], [address] AST [Catalytic activity/Vol] 16 U/L Normal 15-37 [facility] Comment on above: Performed By: #### L 500.4100, L506.0400, L501.9520, L503.0105, L503.6550, L506.1000, L500.4050, L503.6150, L100.0100 #### [facility] [address] [place], [address] Bilirubin [Mass/Vol] 0.60 mg/dL Normal 0.20-1.00 [facility] Comment on above: Result Comment: For patients on eltrombopag therapy, use of Dimension [place] TBIL is not recommended. Performed By: #### L 500.4100, L506.0400, L501.9520, L503.0105, L503.6550, L506.1000, L500.4050, L503.6150, L100.0100 #### [facility] [address] [place], [address] BUN/CRE 18.9 RATIO Normal 10-20 [facility] Comment on above: Performed By: #### L 500.4100, L506.0400, L501.9520, L503.0105, L503.6550, L506.1000, L500.4050, L503.6150, L100.0100 #### [facility] [address] [place], [address] CA,Total 9.0 mg/dL Normal 8.5-10.1 [facility] Comment on above: Performed By: #### L 500.4100, L506.0400, L501.9520, L503.0105, L503.6550, L506.1000, L500.4050, L503.6150, L100.0100 #### [facility] [address] [place], [address] Chloride [Moles/Vol] 105 mmol/L Normal 98-107 [facility] Comment on above: Performed By: #### L 500.4100, L506.0400, L501.9520, L503.0105, L503.6550, L506.1000, L500.4050, L503.6150, L100.0100 #### [facility] [address] [place], [address] CO2 [Moles/Vol] 31.0 mmol/L Normal 21.0-32.0 [facility] Comment on above: Performed By: #### L 500.4100, L506.0400, L501.9520, L503.0105, L503.6550, L506.1000, L500.4050, L503.6150, L100.0100 #### [facility] [address] [place], [address] Creatinine [Mass/Vol] 0.95 mg/dL Normal 0.55-1.02 [facility] Comment on above: Result Comment: The validity of the calculated GFR GFRAA in patients over 70 years has not been determined. Clinical correlation is essential. Performed By: #### L 500.4100, L506.0400, L501.9520, L503.0105, L503.6550, L506.1000, L500.4050, L503.6150, L100.0100 #### [facility] [address] [place], [address] EST GFR - AA 79 mL/min Normal >60 [facility] Comment on above: Result Comment: Afri can [place] GFR Calc Performed By: #### L 500.4100, L506.0400, L501.9520, L503.0105, L503.6550, L506.1000, L500.4050, L503.6150, L100.0100 #### [facility] [address] [place], [address] GAP 3 Low 5-15 [facility] Comment on above: Performed By: #### L 500.4100, L506.0400, L501.9520, L503.0105, L503.6550, L506.1000, L500.4050, L503.6150, L100.0100 #### [facility] [address] [place], [address] GFR/1.73 sq M.predicted among non-blacks MDRD (S/P/Bld) [Vol rate/Area] 65 mL/min/{1.73_m2} Normal >60 [facility] Comment on above: Result Comment: Non- GFR Calc Performed By: #### L 500.4100, L506.0400, L501.9520, L503.0105, L503.6550, L506.1000, L500.4050, L503.6150, L100.0100 #### [facility] [address] [place], [address] Globulin (S) [Mass/Vol] 3.6 g/dL Normal 2.2-4.2 [facility] Comment on above: Performed By: #### L 500.4100, L506.0400, L501.9520, L503.0105, L503.6550, L506.1000, L500.4050, L503.6150, L100.0100 #### [facility] [address] [place], [address] Glucose [Mass/Vol] 91 mg/dL Normal 74-106 [facility] Comment on above: Performed By: #### L 500.4100, L506.0400, L501.9520, L503.0105, L503.6550, L506.1000, L500.4050, L503.6150, L100.0100 #### [facility] [address] [place], [address] Potassium [Moles/Vol] 4.4 mmol/L Normal 3.5-5.1 [facility] Comment on above: Performed By: #### L 500.4100, L506.0400, L501.9520, L503.0105, L503.6550, L506.1000, L500.4050, L503.6150, L100.0100 #### [facility] [address] [place], [address] Sodium [Moles/Vol] 140 mmol/L Normal 136-145 [facility] Comment on above: Performed By: #### L 500.4100, L506.0400, L501.9520, L503.0105, L503.6550, L506.1000, L500.4050, L503.6150, L100.0100 #### [facility] [address] [place], [address] T PROT 7.5 g/dL Normal 6.4-8.2 [facility] Comment on above: Performed By: #### L 500.4100, L506.0400, L501.9520, L503.0105, L503.6550, L506.1000, L500.4050, L503.6150, L100.0100 #### [facility] [address] [place], [address] Urea nitrogen [Mass/Vol] 18 mg/dL Normal 7-18 [facility] Comment on above: Performed By: #### L 500.4100, L506.0400, L501.9520, L503.0105, L503.6550, L506.1000, L500.4050, L503.6150, L100.0100 #### [facility] [address] [place], [address] Ferritinon 07-28-2024 Ferritin [Mass/Vol] 43 ng/mL Normal 8-252 [facility] Comment on above: Performed By: #### L 500.4100, L506.0400, L501.9520, L503.0105, L503.6550, L506.1000, L500.4050, L503.6150, L100.0100 #### [facility] [address] [place], [address] Ironon 07-28-2024 Iron [Mass/Vol] 91 ug/dL Normal 50-170 [facility] Comment on above: Performed By: #### L 500.4100, L506.0400, L501.9520, L503.0105, L503.6550, L506.1000, L500.4050, L503.6150, L100.0100 #### [facility] [address] [place], [address] Lipid Profileon 07-28-2024 Cholesterol [Mass/Vol] 194 mg/dL Normal 200 [facility] Comment on above: Result Comment: <200 mg/dL Desirable 200-240 mg/dL Borderline >240 mg/dL High Risk Performed By: #### L 500.4100, L506.0400, L501.9520, L503.0105, L503.6550, L506.1000, L500.4050, L503.6150, L100.0100 #### [facility] [address] [place], [address] Cholesterol in HDL [Mass/Vol] 66 mg/dL Normal [facility] Comment on above: Result Comment: The drugs N-Acetylcysteine and Metamizole may falsely depress this assay. Reference Range HDL <40 mg/dL Low HDL Cholesterol HDL >or= 60 mg/dL High HDL Cholesterol Performed By: #### L 500.4100, L506.0400, L501.9520, L503.0105, L503.6550, L506.1000, L500.4050, L503.6150, L100.0100 #### [facility] [address] [place], [address] Cholesterol in LDL [Mass/Vol] 109 mg/dL Normal 0-130 [facility] Comment on above: Performed By: #### L 500.4100, L506.0400, L501.9520, L503.0105, L503.6550, L506.1000, L500.4050, L503.6150, L100.0100 #### [facility] [address] [place], [address] Cholesterol in VLDL [Mass/Vol] 19 mg/dL Normal 5-40 [facility] Comment on above: Performed By: #### L 500.4100, L506.0400, L501.9520, L503.0105, L503.6550, L506.1000, L500.4050, L503.6150, L100.0100 #### [facility] [address] [place], [address] Triglyceride [Mass/Vol] 95 mg/dL Normal [facility] Comment on above: Result Comment: The drugs N-Acetylcysteine and Metamizole may falsely depress this assay. Serum Triglycerides Reference Interval Normal <150 mg/dL Borderline high 150 - 199 mg/dL High 200 - 499 mg/dL Very High > or = 500 mg/dL Performed By: #### L 500.4100, L506.0400, L501.9520, L503.0105, L503.6550, L506.1000, L500.4050, L503.6150, L100.0100 #### [facility] [address] [place], [address] T4 Free Directon 07-28-2024 T4 FREE DIRECT 1.00 ng/dL Normal 0.76-1.46 [facility] Comment on above: Performed By: #### L 500.4100, L506.0400, L501.9520, L503.0105, L503.6550, L506.1000, L500.4050, L503.6150, L100.0100 #### [facility] [address] [place], [address] Thyroid Stim Hormone (TSH)on 07-28-2024 TSH 2.190 uIU/mL Normal 0.358-3.740 [facility] Comment on above: Performed By: #### L 500.4100, L506.0400, L501.9520, L503.0105, L503.6550, L506.1000, L500.4050, L503.6150, L100.0100 #### [facility] [address] [place], [place], [address] Echo Complete W/ Contraston 02-16-2024 Echo Complete W/ Contrast [facility] [address] [place] [address] Echo Complete W/ Contrast 02/16/24 0906 MR#: [id number] Acct: [id number] Name: CHUN HERNANDES Rep #: [id number] : 1970 53 From: Herman Landis MD Attending Dr: Justyna Bryant NP-C Status: REG C Ordering Dr: Justyna Bryant MICROBIOLOGY LAB ANALYST MICROBIOLOGY LAB ANALYST-C Date: 02/16/24 Location: CVS Sex: F C Admitted: Reason For Study: CHEST PAIN Procedure This was a 2D Doppler, Color Flow transthoracic echocardiogram. The study was technically difficult. Due to poor apical accoustic windows. Contrast injection was performed. Exam performed in department. Left Ventricle Normal LV size. Left ventricular systolic function is normal. The left ventricular ejection fraction is 60 %. No regional wall motion abnormalities noted. Right Ventricle Normal RV size. Normal systolic function. Atria Normal left atrium. Normal right atrium. Mitral Valve Normal mitral valve. Tricuspid Valve Normal tricuspid valve. Mild (1+) tricuspid valve insufficiency. Pulmonary artery systolic pressure is 28 mmHg. Aortic Valve Normal aortic valve. Pulmonic Valve The pulmonic valve is not well visualized. Great Vessels Normal aortic root. The pulmonary artery is normal size. Normal inferior vena cava. Pericardium/Pleural No pericardial effusion. Medication Diluted definity 2.0ml given slow IV push to enhance endocardial definition. MMode/2D Measurements Calculations LVIDd: 4.3 cm IVSd: 0.73 cm Ao root diam: 2.9 cm LVIDs: 2.5 cm LVPWd: 0.77 cm RVDd: 2.8 cm FS: 42.2 % _ LAV(MOD-sp4): 36.3 ml LVAd ap4: 22.1 cm2 LVAd ap2: 25.1 cm2 LVLd ap4: 7.6 cm LVLd ap2: 7.9 cm EDV(MOD-sp4): 53.9 ml EDV(MOD-sp2): 66.0 ml EDV(sp4-el): 54.8 ml EDV(sp2-el): 67.6 ml LVAs ap4: 13.7 cm2 LVAs ap2: 14.7 cm2 LVLs ap4: 7.1 cm LVLs ap2: 7.0 cm ESV(MOD-sp4): 22.9 ml ESV(MOD-sp2): 26.5 ml ESV(sp4-el): 22.7 ml ESV(sp2-el): 25.9 ml EF(MOD-sp4): 57.6 % EF(MOD-sp2): 59.8 % EF(sp4-el): 58.6 % _ SV(MOD-sp4): 31.1 ml SV(MOD-sp2): 39.5 ml SV(sp4-el): 32.1 ml _ LA A4 area: 14.8 cm2 LA dimension(2D): 3.4 cm RA A4 area: 12.0 cm2 _ TAPSE: 2.3 cm Time Measurements MV dec time: 0.18 sec Doppler Measurements Calculations MV E max hernandez: 84.1 cm/sec Lat Peak E' Hernandez: 14.0 cm/sec Med Peak E' Hernandez: 10.5 cm/sec MV A max hernandez: 66.0 cm/sec E/E' lat: 6.0 E/E' med: 8.0 MV E/A: 1.3 _ MV V2 max: 95.9 cm/sec MV P1/2t max hernandez: 94.4 cm/sec Ao V2 max: 122.1 cm/sec MV max P.7 mmHg MV P1/2t: 68.2 msec Ao max P.0 mmHg MV V2 mean: 46.5 cm/sec Ao V2 mean: 84.5 cm/sec MV mean P.1 mmHg MV dec slope: 405.5 cm/sec2 Ao mean P.2 mmHg MV V2 VTI: 28.4 cm MVA(P1/2t): 3.2 cm2 Ao V2 VTI: 28.3 cm AV (velocity ratio): 0.89 _ LV V1 max: 115.9 cm/sec PA V2 max: 83.9 cm/sec TR max hernandez: 245.5 cm/sec LV V1 max P.4 mmHg PA V2 mean: 61.9 cm/sec TR max P.1 mmHg LV V1 mean P.7 mmHg LV V1 mean: 76.5 cm/sec LV V1 VTI: 25.1 cm ECHO/Echo Complete W/ Contrast Interpretation Summary Normal LV size. Left ventricular systolic function is normal. The left ventricular ejection fraction is 60 %. Mild (1+) tricuspid valve insufficiency. Contrast injection was performed. Ordering Physician: Justyna Bryant Referring Physician: TRUDY PCP Performed By: Arianne Mobley, JAZMIN, RVT 02/16/241326 Date Herman Landis MD CC: BARON Bryant; No Primary Care Physician Date Dictated: 02/16/24905 Date Transcribed: 02/16/241326 Ambulance Driver Paramedic: Signed Normal [facility] Stress Reporton 02-16-2024 Stress Report [facility] [address] [place] [address] MR#: [id number] Acct: [id number] Name: CHUN HERNANDES Rep #: [id number] : 1970 53 From: Herman Landis MD Primary Care: Care Physician,No Primary Status: REG CLI Referring Dr: Justyna Bryant NP Sex: F C Stress Test Report Exercise myocardial perfusion stress test. 53-year-old lady with a history of chest pain Stress protocol: Resting EKG demonstrates normal sinus rhythm with a rate of 49 bpm resting blood pressure is 110/80 mmHg. The patient exercised according to the regular [employer] protocol for a total duration of 9 minutes attaining a maximum heart rate of 155 bpm which was 91% of maximum predicted heart rate; the maximum workload was 10.1 metabolic equivalents. At rest there were no ST or T wave changes noted to suggest ischemia and at peak exercise upsloping ST changes only were noted which did not meet the criteria for ischemia. No clinical angina was noted the test was terminated due to the target heart rate being achieved/fatigue. The peak blood pressure was 140/70 mmHg. Rate-pressure product was 21,700. Myocardial perfusion protocol. 11.5 mCi of technetium 99m sestamibi was injected at rest. The patient exercised according to regular [employer] protocol for total duration of 9 minutes and at peak exercise 33.7 mCi of technetium 99m sestamibi was injected stress images were obtained stress and rest images were reconstructed in comparing the short axis vertical long and horizontal long axis. Gated images were also obtained. Perfusion SPECT analysis: Review of the stress images demonstrate normal uptake of tracer noted in all areas of the myocardium. The resting images similarly demonstrate normal uptake of tracer noted in all areas of the myocardium. No areas of reversibility are noted to suggest ischemia no previous infarct was noted. Gated SPECT analysis: The gated ejection fraction is 72%. Conclusion: Normal exercise myocardial perfusion stress test at a high workload Preserved ejection fraction. 02/16/24 1418 Date Herman Landis MD CC: BARON Bryant; No Primary Care Physician Date Dictated: 02/16/241416 Date Transcribed: 02/16/241416 Ambulance Driver Paramedic: [place] Signed Normal [facility] Absolute lymphocyte countOrd ered By: Aiden Butts on 12-26-2023 Lymphocytes Auto (Unsp spec) [#/Vol] 1.68 10*3/uL 0.83-4.51 [facility] Automated lymphocyte count a s percentage of total leukocytesOrdered By: Aiden Butts on 12-26-2023 Lymphocytes/100 WBC Auto (Unsp spec) 32.2 % 19-41 [facility] Basophil percentageOrdered B y: Aiden Butts on 12-26-2023 Basophils/100 WBC (Bld) 0.8 % 0-1 [facility] Chloride [Moles/Vol] 107 mmol/L 98-107 [facility] Eosinophils/100 WBC (Bld) 4.2 % 0-5 [facility] Glucose [Mass/Vol] 98 mg/dL 74-106 [facility] Hemoglobin (Bld) [Mass/Vol] 16.1 g/dL 12.0-15.0 [facility] Monocytes/100 WBC (Bld) 7.9 % 0-10 [facility] Neutrophils (Bld) [#/Vol] 2.9 10*3/uL 2.0-7.7 [facility] Neutrophils/100 WBC (Bld) 54.7 % 47-70 [facility] Potassium [Moles/Vol] 3.6 mmol/L 3.5-5.1 [facility] Sodium [Moles/Vol] 141 mmol/L 136-145 [facility] WBC (Bld) [#/Vol] 5.2 10*3/uL 4.4-11.0 [facility] Determination of erythrocyte mean corpuscular volume (MCV)Ordered By: Aiden Butts on 12-26-2023 MCV (RBC) [Entitic vol] 95.3 fL 81-99 [facility] Erythrocyte distribution wid th ratioOrdered By: Aiden Butts on 12-26-2023 Erythrocyte distribution width (RBC) [Ratio] 12.1 % 11.6-14.6 [facility] Erythrocyte distribution wid th standard deviationOrdered By: Aiden Butts on 12-26-2023 Erythrocyte distribution width (RBC) [Entitic vol] 42.5 fL 35.1-43.9 [facility] Hematocrit Auto (Bld) [Volum e fraction]Ordered By: Aiden Butts on 12-26-2023 Hematocrit (Bld) [Volume fraction] 49.0 % 37-47 [facility] Immature granulocytes/100 WB C Auto (Bld)Ordered By: Aiden Butts on 12-26-2023 Immature granulocytes/100 WBC (Bld) 0.200 % 0.0-0.9 [facility] Comment on above: IG% - Immature Granu locytes (promyelocytes, myelocytes and metamyelocytes) > 1% indicates that a LEFT SHIFT is Present. Laboratory - Chemistry and C hemistry - challengeOrdered By: Aiden Butts on 12-26-2023 CO2 [Moles/Vol] 30.0 mmol/L 21.0-32.0 [facility] Urea nitrogen/Creatinine [Mass ratio] 18.8 mg/mg 10-20 [facility] Laboratory - Hematology and Cell countsOrdered By: Aiden Butts on 12-26-2023 MCH (RBC) [Entitic mass] 31.3 pg 27.0-32.0 [facility] MCHC (RBC) [Mass/Vol] 32.9 g/dL 32-36 [facility] Nucleated RBC/100 WBC (Bld) [Ratio] 0 % 0-5 [facility] Platelet mean volume (Bld) [Entitic vol] 9.6 fL 6.2-12.0 [facility] Platelets (Bld) [#/Vol] 250 10*3/uL 150-450 [facility] No Panel InformationOrdered By: Aiden Butts on 12-26-2023 Estimated Creatinine Clearance Calc 62.28 ml/min [facility] Estimated GFR (MDRD) Amer 79 mL/min >60 [facility] Comment on above: GFR Calc Estimated GFR (MDRD) Non-Af Amer 65 mL/min >60 [facility] Comment on above: Non- GFR Calc Troponin I High Sensitivity 4 pg/mL 3.0-54.0 [facility] Comment on above: Please Note: New Anya t Units and Gender Specific Reference Ranges. For more information see Policy Stat Procedure [place] High Sensitivity Troponin (TNIH) and attachments. RBC Auto (Bld) [#/Vol]Ordere d By: Aiden Butts on 12-26-2023 RBC (Bld) [#/Vol] 5.14 10*6/uL 4.2-5.4 [facility] Serum or plasma calcium cortes urement (mass/volume)Ordered By: Aiden Butts on 12-26-2023 Calcium [Mass/Vol] 9.6 mg/dL 8.5-10.1 [facility] Serum or plasma creatinine m easurement (mass/volume)Ordered By: Aiden Butts on 12-26-2023 Creatinine [Mass/Vol] 0.96 mg/dL 0.55-1.02 [facility] Comment on above: The validity of the calculated GFR & GFRAA in patients over 70 years has not been determined. Clinical correlation is essential. Serum or plasma urea nitroge n measurement (mass/volume)Ordered By: Aiden Butts on 12-26-2023 Urea nitrogen [Mass/Vol] 18 mg/dL 7- [facility] Thin prep Papanicolaou smear with manual screeningOrdered By: Aiden Butts on 12-26-2023 Thin prep Papanicolaou smear with manual screening 4 01-24 [facility] STREP A MOLECULAR (POC)on Procedural Control Valid [facility] Strep A (POCT) Negative Negative [facility] STREP A MOLECULAR (POC)on Procedural Control Valid [facility] Strep A (POCT) Negative Negative [facility] Vital Signs Date Time Vital Sign Value Performing Clinician Ismael tovar 10-24-2024 11:15-0500 Body height 157.5 cm Kae Abel APRN.CNM Work Phone: [facility] 10-24-2024 11:15-0500 Body mass index (BMI) [Ratio] 26.34 kg/m2 Kae Abel APRN.CNM Work Phone: [facility] 10-24-2024 11:15-0500 Body weight 65.32 kg Kae Abel APRN.CNM Work Phone: [facility] 10-24-2024 11:15-0500 Diastolic blood pressure 68 mm[Hg] Kae Abel APRN.CNM Work Phone: [facility] 10-24-2024 11:15-0500 Systolic blood pressure 116 mm[Hg] Kae Abel CNM Work Phone: [facility] 12-26-2023 08:51-0400 Body temperature 97.5 [degF] [facility] 12-26-2023 08:51-0400 Diastolic blood pressure 66 mm[Hg] [facility] 12-26-2023 08:51-0400 Heart rate 56 /min [facility] 12-26-2023 08:51-0400 Respiratory rate 15 /min [facility] 12-26-2023 08:51-0400 SaO2% (BldA) [Mass fraction] 99 % [facility] 12-26-2023 08:51-0400 Systolic blood pressure 122 mm[Hg] [facility] 12-26-2023 06:48-0400 Body height 157.48 cm [facility] 12-26-2023 06:48-0400 Body mass index (BMI) [Ratio] 27 kg/m2 [facility] 12-26-2023 06:48-0400 Body weight 67.1 kg [facility] 03-23-2023 09:46-0400 Body temperature 98.1 [degF] Dewayne Cotton APRN.MACHINE II CUTTER Work Phone: [facility] 03-23-2023 09:46-0400 Body weight 63.87 kg Dewayne Cotton APRN.MACHINE II CUTTER Work Phone: [facility] 03-23-2023 09:46-0400 Diastolic blood pressure 82 mm[Hg] Dewayne Cotton THERMOSTATIC CONTROLS SUPERVISOR.MACHINE II CUTTER Work Phone: [facility] 03-23-2023 09:46-0400 Heart rate 64 /min Dewayne Cotton THERMOSTATIC CONTROLS SUPERVISOR.MACHINE II CUTTER Work Phone: [facility] 03-23-2023 09:46-0400 Respiratory rate 21 /min Dewayne Cotton THERMOSTATIC CONTROLS SUPERVISOR.MACHINE II CUTTER Work Phone: [facility] 03-23-2023 09:46-0400 SaO2% (BldA) [Mass fraction] 99 % Dewayne Cotton THERMOSTATIC CONTROLS SUPERVISOR.MACHINE II CUTTER Work Phone: [facility] 03-23-2023 09:46-0400 Systolic blood pressure 120 mm[Hg] Dewayne Cotton THERMOSTATIC CONTROLS SUPERVISOR.MACHINE II CUTTER Work Phone: [facility] 03-13-2023 08:58-0400 Body temperature 97 [degF] Nazanin Hicks-Andrea THERMOSTATIC CONTROLS SUPERVISOR.MACHINE II CUTTER Work Phone: [facility] 03-13-2023 08:58-0400 Body weight 64.23 kg Nazanin Wesley THERMOSTATIC CONTROLS SUPERVISOR.MACHINE II CUTTER Work Phone: [facility] 03-13-2023 08:58-0400 Diastolic blood pressure 84 mm[Hg] Nazanin Brooksler-Andrea THERMOSTATIC CONTROLS SUPERVISOR.MACHINE II CUTTER Work Phone: [facility] 03-13-2023 08:58-0400 Heart rate 105 /min Nazanin Brooksler-Andrea THERMOSTATIC CONTROLS SUPERVISOR.MACHINE II CUTTER Work Phone: [facility] 03-13-2023 08:58-0400 Respiratory rate 18 /min Nazanin Brooksler-Andrea THERMOSTATIC CONTROLS SUPERVISOR.MACHINE II CUTTER Work Phone: [facility] 03-13-2023 08:58-0400 SaO2% (BldA) [Mass fraction] 99 % Nazanin Hicks-Andrea THERMOSTATIC CONTROLS SUPERVISOR.MACHINE II CUTTER Work Phone: [facility] 03-13-2023 08:58-0400 Systolic blood pressure 122 mm[Hg] Nazanin Brooksler-Andrea THERMOSTATIC CONTROLS SUPERVISOR.MACHINE II CUTTER Work Phone: [facility] Encounters Encounter Date Encounter Type Care Provider Facility Start: 02-13-2025 ambulatory No Primary Car e Physician Facility:[facility] Start: 02-11-2025 Encounter for other preprocedural examination Td Hidalgo [facility] Start: 10-25-2024 End: 12-25-2024 Follow-up encounter Kae Abel APRN.CNM Work Phone: OB/Gynecology Start: 10-25-2024 End: 10-25-2024 Telephone encounter Kae Abel APRN.CNM Work Phone: OB/Gynecology Comment on above: Mammogram results Start: 10-24-2024 End: 10-24-2024 Patient encounter procedure Kae Abel APRN.CNM Work Phone: OB/Gynecology Comment on above: Encounter for gyneco logical examination (general) (routine) without abnormal findings (Primary Dx); Encounter for screening mammogram for breast cancer; Dense breast tissue; Post-menopause Start: 10-24-2024 End: 10-24-2024 Patient encounter status Kae Abel APRN.SEAN Work Phone: [facility] Start: 10-24-2024 End: 10-24-2024 ambulatory KAE ABEL Facility:[facility] Start: 10-24-2024 End: 10-24-2024 Subsequent hospital visit by physician Screen Mammo [facility] Mammogram Comment on above: Encounter for screen ing mammogram for malignant neoplasm of breast [Z12.31] Start: 10-03-2024 End: 10-03-2024 Telephone encounter Kae Abel APRN.CNM Work Phone: OB/Gynecology Comment on above: Orders Start: 08-25-2024 Encounter for genera l adult medical examination with abnormal findings Laila Barakat [facility] Start: 08-15-2024 ambulatory No Primary Car e Physician Facility:[facility] Start: 07-28-2024 End: 07-28-2024 ambulatory No Primary Care Physician Facility:[facility] Start: 02-16-2024 ambulatory No Primary Car e Physician Facility:[facility] Start: 02-16-2024 ambulatory [place] [facility] Start: 02-16-2024 End: 02-16-2024 ambulatory No Primary Care Physician Facility:[facility] Start: 12-26-2023 End: 12-26-2023 Emergency department patient visit [facility]Emergency Department Work Phone: Start: 10-24-2023 Documentation procedure Mammog neeta Coordinator [facility] Start: 10-24-2023 Letter encounter Mammography Coordinator [facility] Department Start: 10-21-2023 End: 10-21-2023 Patient encounter [facility] Start: 10-21-2023 End: 10-21-2023 Subsequent hospital visit by physician Screen Mammo [facility] Mammogram Comment on above: Encounter for gyneco logical examination (general) (routine) without abnormal findings [Z01.419] Start: 03-23-2023 End: 03-23-2023 Patient encounter procedure Dewayne King BENJAMIN Work Phone: [facility] Comment on above: Sore throat (Primary Dx); ETD (Eustachian tube dysfunction), left Start: 03-13-2023 End: 03-13-2023 Patient encounter procedure Nazanin Wesley APRN.MACHINE II CUTTER Work Phone: [facility] Comment on above: Sore throat (Primary Dx); Other acute nonsuppurative otitis media of left ear, recurrence not specified Start: 10-14-2022 Transcribe Orders Yumiko Blackwell DO Work Phone: [facility] Urogynecology Comment on above: Complete uterovagina l prolapse (Primary Dx) Start: 11-17-2018 End: 11-18-2018 Patient encounter procedure YONATHAN BERKOWITZ Facility:[facility] Procedures Date Procedure Procedure Detail Performing Clinician Start: 10-24-2024 Screening digital br east tomosynthesis bi Kae Abel APRN.CNM Work Phone: Start: 12-26-2023 Plain chest X-ray Start: 03-23-2023 STREP A MOLECULAR (POC) [facility] Provider Start: 03-13-2023 STREP A MOLECULAR (POC) Tania Lnyn APRN.MACHINE II CUTTER Work Phone: Start: 04-28-2016 Mammography Nazanin Hinojosa APRN.CNP Work Phone: Start: 12-13-2011 Lipid 1996 panel - S yoav or Plasma Screen Wstr Plan of Treatment Date Care Activity Detail Author Start: 10-13-2028 Screening for malign ant neoplasm of cervix [facility] Start: 10-29-2025 End: 10-29-2025 Patient encounter procedure Mammogram Comment on above: Encounter for screen ing mammogram for breast cancer [Z12.31]; Dense breast tissue [R92.30] Annual Start: 10-24-2025 End: 11-23-2025 DBT Breast - bilateral screening JANEY SCREENING W [facility] Radiology Routine Encounter for gynecological examination (general) (routine) without abnormal findings Encounter for screening mammogram for breast cancer Dense breast tissue Expected: 10/24/2025 (Approximate), Expires: 11/23/2025 [facility] Work Phone: Comment on above: Expected: 10/24/2025 (Approximate), Expires: 11/23/2025 Start: 10-24-2025 Screening for malign ant neoplasm of breast Mammogram Screening [facility] Start: 10-24-2024 End: 10-24-2024 Patient encounter procedure Mammogram Comment on above: Annual Start: 10-21-2024 Screening for malign ant neoplasm of breast Mammogram Screening [facility] Start: 05-13-2024 Covid-19 Vaccine ( season) Covid-19 Vaccine () [facility] Start: 05-13-2024 Influenza vaccination Influenza Vacc ine (#1) [facility] Start: 12-26-2023 [facility] Start: 12-26-2023 [facility] Start: 09-12-2023 [facility] Start: 05-13-2023 Covid-19 Vaccine ( season) Covid-19 Vaccine ( season) [facility] Start: 05-13-2023 Influenza vaccination [facility] Start: 10-01-2022 Screening for malign ant neoplasm of cervix [facility] Start: 09-12-2022 DEPRESSION ASSESSMENT DEPRESSION ASS ESSMENT [facility] Start: 2022 Pneumococcal Vaccine : 50+ (1 of 1 - PCV) Pneumococcal Vaccine: 50+ (1 of 1 - PCV) [facility] Start: 2022 SHINGRIX VACCINE (1 of 2) SHINGRIX VACCINE (1 of 2) [facility] Start: 2022 Zoster Vaccines (1 o f 2) Zoster Vaccines (1 of 2) [facility] Start: 08-19-2021 COVID-19 VACCINE (4 - Booster for Pfizer series) COVID-19 VACCINE (4 - Booster for Pfizer series) [facility] Start: 08-19-2021 COVID-19 VACCINE (4 - Pfizer series) COVID-19 VACCINE (4 - Pfizer series) [facility] Start: 04-28-2020 HPV TESTING HPV TESTING [facility] Start: 04-28-2020 PAP TESTING PAP TESTING [facility] Start: 2017 COLOGUARD (FIT-DNA) COLOGUARD (FIT-D NA) [facility] Start: 2017 Colonoscopy COLONOSCOPY [facility] Start: 2017 COLORECTAL CANCER SCREENING COLORECTAL CANCER SCREENING [facility] Start: [address] COLONOGRAPHY [facility] Start: 2017 DIABETES [facility]CREEN [facility] Start: 2017 Diabetes Screening Diabetes Screenin g [facility] Start: 2017 FECAL OCCULT BLOOD FECAL OCCULT BLOO D [facility] Start: 2017 Lipid panel Lipid Screening [facility] Start: 2017 LIPID SCREEN LIPID SCREEN [facility] Start: 2017 Screening for malign ant neoplasm of colon [facility] Start: 2017 SIGMOIDOSCOPY SIGMOIDOSCOPY [facility] Start: 04-28-2017 Mammography MAMMOGRAM [facility] Start: 04-28-2017 Screening for malign ant neoplasm of breast Mammogram Screening [facility] Start: 2012 Screening for malign ant neoplasm of breast Mammogram [facility] Start: 2002 Screening for malign ant neoplasm of cervix [facility] Start: 1993 Screening for malign ant neoplasm of cervix Pap Smear [facility] Start: 1991 DTaP/Tdap/Td Vaccine s (1 - Tdap) DTaP/Tdap/Td Vaccines (1 - Tdap) [facility] Start: 1991 Hepatitis B Vaccine (1 of 3 - 19+ 3-dose series) Hepatitis B Vaccine (1 of 3 - 19+ 3-dose series) [facility] Start: 1991 Urine microalbumin profile [facility] Start: 1990 Anxiety Screening Anxiety Screening [facility] Start: 1990 Depression Screening Depression Scre ening [facility] Start: 1990 Hepatitis C screening Hepatitis C [facility] Start: 1990 HEPATITIS C SCREENING HEPATITIS C SC [facility] Start: 1990 HIV SCREENING HIV SCREENING [facility] Start: 1990 HIV screening HIV Screening [facility] Start: 1984 Depression Screening Depression Scre ening [facility] Start: 1973 MMR Vaccines (1 of 1 - Standard series) MMR Vaccines (1 of 1 - Standard series) [facility] Start: 1972 COVID-19 Vaccine (#1) COVID-19 Vacci ne (#1) [facility] Start: 1972 HEPATITIS B (1 of 3 - 3-dose series) HEPATITIS B (1 of 3 - 3-dose series) [facility] Start: 1972 Hepatitis B Vaccine (1 of 3 - 3-dose series) Hepatitis B Vaccine (1 of 3 - 3-dose series) [facility] Start: 1972 Hepatitis B Vaccines (1 of 3 - 3-dose series) Hepatitis B Vaccines (1 of 3 - 3-dose series) [facility] Start: 1972 HIV screening HIV Screening [facility] Start: 1972 Screening for malign ant neoplasm of colon [facility] ALERE STREP A TEST (AG) ALERE ST REP A TEST (AG) Lab Routine Sore throat Ordered: 03/23/2023 [facility] Work Phone: Comment on above: Ordered: 03/23/2023 DBT Breast - bilater al screening JANEY SCREENING W LUANNE Radiology Routine Encounter for gynecological examination (general) (routine) without abnormal findings Encounter for screening for human papillomavirus (HPV) Pap smear for cervical cancer screening Dense breast tissue 10/21/2023 8:13 AM EST [facility] Work Phone: End: 11-02-2025 DBT Breast - bilateral screening JANEY SCREENING W [facility] Radiology Routine Encounter for screening mammogram for malignant neoplasm of breast 1 Occurrences starting 10/03/2024 until 11/02/2025 [facility] Work Phone: Comment on above: 1 Occurrences starti ng 10/03/2024 until 11/02/2025 OUTSIDE PROCEDURE SCAN OUTSIDE P ROCEDURE SCAN Procedures Ordered: 10/14/2022 [facility] Comment on above: Ordered: 10/14/2022 Patient Education ED Chest Pain, Uncertain Cause [facility] Work Phone: Patient referral [facility] Work Phone: End: 11-24-2025 US Breast - bilateral US BREAST COMPLETE BILATERAL Radiology Routine Dense breast tissue 1 Occurrences starting 10/25/2024 until 11/24/2025 [facility] Work Phone: Comment on above: 1 Occurrences starti ng 10/25/2024 until 11/24/2025 [facility] Immunizations Immunization Date Immunization Notes Care Provider César rodriguez 09-15-2023 influenza virus vaccine, unspecified formulation Kae Abel THERMOSTATIC CONTROLS SUPERVISOR.CNM Work Phone: [facility] 06-14-2009 influenza virus vaccine, live, attenuated, for intranasal use Nazanin Wesley THERMOSTATIC CONTROLS SUPERVISOR.MACHINE II CUTTER Work Phone: [facility] Work Phone: 07-18-2006 influenza virus vaccine, unspecified formulation Nazanin Wesley THERMOSTATIC CONTROLS SUPERVISOR.MACHINE II CUTTER Work Phone: [facility] Work Phone: Payers Date Payer Category Payer Self-pay [id number] 2021 Private Health Insurance MMO [employer] PPO [id number] 2021 Unknown [id number] 2017 Unknown [id number] 1972 Unknown [id number] Unknown [id number] Unknown [id number] Unknown [id number] Unknown [id number] Unknown [id number] Unknown [id number] Unknown [id number] Social History Date Type Detail Facility Tobacco smoking status [facility] Unknown if ever smoked [facility] Work Phone: Start: 1970 Sex Assigned At Female [facility] Start: 12-26-2023 Tobacco smoking status [facility] Tobacco smoking consumption unknown [facility] Start: 1970 Sex Assigned At Not on file [facility] Start: 03-13-2012 Tobacco smoking status [facility] Never smoked tobacco [facility] Start: 03-13-2012 Tobacco use and exposure Smokeless tobacco non-user [facility] Start: 03-13-2023 End: 10-24-2024 Alcohol intake Current drinker of alcohol (finding) [facility] Start: 10-07-2007 Alcohol Comment socially,NOT W HILE [facility] Start: 03-23-2023 End: 10-13-2023 History of Social function [facility] Start: 03-23-2023 End: 10-13-2023 Tobacco use panel [facility] National Score (1-100), lower number is lower risk 46 [facility] Functional Status Date Assessment Result Facility 04-08-2014 Are you deaf, or do you have serious difficulty hearing No 04/08/2014 11:36 AM EDT Yessenia Tucker MA No [facility] 04-08-2014 Are you blind, or do you have serious difficulty seeing, even when wearing glasses No 04/08/2014 11:36 AM EDT Yessenia Tucker MA [facility] 04-08-2014 Do you have serious difficulty walking or climbing stairs No 04/08/2014 11:36 AM EDT Yessenia Tucker MA [facility] 04-08-2014 Do you have difficul ty dressing or bathing No 04/08/2014 11:36 AM EDT Yessenia Tucker MA [facility] 04-08-2014 Because of a physica l, mental, or emotional condition, do you have difficulty doing errands alone such as visiting a physician's office or shopping No 04/08/2014 11:36 AM EDT Yessenia Tucker MA [facility] Mental Status Date Assessment Result Facility 12-26-2023 Cognitive function Level Of Cons ciousness Awake;Alert;Appropriate [facility] Work Phone: 04-08-2014 Because of a physica l, mental, or emotional condition, do you have serious difficulty concentrating, remembering, or making decisions No 04/08/2014 11:36 AM EDT Yessenia Tucker MA [facility] Clinical Notes 03-13-2023 to 10-25-2024 Telephone Encounter - Anaid Segal LPN - 10/25/2024 11:09 AM ESTTelephone Encounter - Anaid Segal LPN - 10/25/2024 11:09 AM ESTPatient InstructionsPatient Instructions Note Date & Type Note Facility 10-25-2024 Telephone encounter Note Patient notified [facility] 10-25-2024 Miscellaneous Notes Patient notified Left message for patient to call office. Colleen Olvera RN Results reviewed. There is no evidence of malignancy in either breast. Patient has noted dense breast tissue. She has <15% lifetime risk of developing breast cancer but it is recommended for further screening with a breast ultrasound. Order placed. Please assist patient with scheduling. Kae Abel APRN.CNM documented in this encounter [facility] 10-25-2024 Telephone encounter Note Left message for patient to call office. Colleen Olvera RN [facility] 10-25-2024 Telephone encounter Note Results reviewed. There is no evidence of malignancy in either breast. Patient has noted dense breast tissue. She has <15% lifetime risk of developing breast cancer but it is recommended for further screening with a breast ultrasound. Order placed. Please assist patient with scheduling. Kae Abel APRN.CNM [facility] 10-24-2024 Instructions Kae Abel APRN.CNM - 10/24/2024 11:41 AM EST Non-Hormonal Vaginal Lubricants & Vaginal Moisturizers Symptoms of vaginal dryness can be managed by the regular use of vaginal moisturizing agents with supplemental use of vaginal lubricants for sexual intercourse. . Use of vaginal moisturizers and lubricants alone is effective treatment for vaginal dryness or dyspareunia (pain with intercourse) in some patients. Vaginal lubrications- Vaginal lubricants are designed to reduce friction and discomfort from dryness during sexual intercourse. The lubricant is applied inside the vagina and/or on the partner's penis or fingers just before sex. Coconut, [place], Avocado or Peanut oil- natural oils are not recommended for use with latex condoms or diaphragms as they can damage the latex Astroglide- has both water and silicone based KY Jelly- water based Just like me - Pure Romance Almost Naked Good Clean Love - Bio Nude ultra-sensitive Pjur- silicone ID [facility]- silicone Vaginal Moisturizers- Vaginal moisturizers are intended for use routinely, typically two or three days per week, not just during sexual activity. These products are typically bioadhesives. Many moisturizer products are available in pharmacies and online. [email or web address] Replens Jaxon Feminease Moist Again K-Y Liquid beads Products to assist with maintaining vaginal ph IsoFresh www.[place] [employer] documented in this encounter [facility] 10-24-2024 Note HNO ID: [id number] Author: KAE ABEL APRN.CNM Service: ? Author Type: Physicist Nuclear Type: Progress Notes Filed: 10/24/2024 16:05 Note Text: Chun is a 54 year old who presents for an annual gynecologic exam without complaints. Postmenopausal: Yes HRT use: No Still get period: No Menopause symptoms: Hot flashes; Night sweats Time with current partner: 27 years Number of lifetime partners: 1 control frequency: Always HPV vaccine: No; Last pap smear: 10/13/2023 - normal History of abnormal pap: No, all prior PAP smears have been normal Bothersome pelvic pain: No Last mammogram: 2024 pending History of abnormal mammogram: Yes - hx of breast biopsy was negative OB History Gravida3 Para3 Term3 Preterm0 AB0 Living3 SAB0 IAB0 Ectopic0 Multiple0 Live Births2 Lining Presser History LMP: 02/17/2024, Perimenopausal Age at Menarche: 13 Age at First : Age at Menopause: Lining Presser History Comments: Sexual Activity: Yes; Male Contraception: Vasectomy PAST MEDICAL HISTORY Diagnosis Date infertility 2002 was on clomid Mitral valve disorders(424.0) Mitral valve prolaspe PAST SURGICAL HISTORY Procedure Laterality Date CATH AND SALINE/CONTRAST SONOHYSTER/HYSTEROSALPI EXTRACTION, ERUPTED TOOTH OR EXPOSED ROOT (ELEVATION AND/OR FORCEPS REMOVAL) WISDOM TEETH FAMILY HISTORY Problem Relation Age of Onset Diabetes Mother TYPE 2 Hypertension Mother Hypertension Maternal Grandmother Cancer Maternal Grandfather SKIN Hypertension Maternal Grandfather Colon Cancer Maternal Grandfather 89 Heart Paternal Grandmother Breast Cancer Other MGGM Breast Cancer Other 50 Triple negative SOCIAL HISTORY Social History Tobacco Use Smoking status: Never Smokeless tobacco: Never Vaping Use Vaping status: Never Used Substance Use Topics Alcohol use: Yes Drug use: No REVIEW OF SYSTEMS Abdomen: No abdominal pain, nausea, vomiting, diarrhea, or constipation. No bloating, early satiety, indigestion, or increased flatulence. Bladder: No dysuria, gross hematuria, urinary frequency, urinary urgency, or incontinence Breast: No breast lumps, nipple d/c, overlying skin changes, redness or skin retraction Allergies and current medication updated:Yes SENSITIVE EXAM: The sensitive examination was discussed with the Patient or Patient's Authorized Dye Colorist Dyer. As applicable, any other physician, advance practice provider, medical student, or other health professional student that will be observing or involved in the sensitive examination for educational or training purposes was discussed with the Patient or Authorized Dye Colorist Dyer. The Patient or Authorized Dye Colorist Dyer has agreed to proceed with the sensitive examination. (Sensitive examination includes inspection and/or palpation of the breasts, pelvis, prostate and anorectal regions). EXAM: BP 116/68 Ht 5' 2 (1.58m) Wt 144 lb (65.3kg) LMP 02/17/2024 BMI 26.33 kg/(m2). GENERAL: pleasant, female in no apparent distress HEENT: Normocephalic, atraumatic, mucus membranes moist, and no lesions NECK: Supple, full range of motion, no adenopathy, and thyroid normal DERMATOLOGY: Normal, without lesions, non-icteric, and non-hirsute BREAST: deferred CHEST: Normal inspiratory effort ABDOMEN: soft, non-tender, and no masses PELVIC: external genitalia normal, normal Bartholin's glands, urethra, Otsego's glands, no vulvar lesions, no cervical lesions, good vaginal support, physiologic discharge present, normal appearing perineal body and perianal region BIMANUAL: uterus normal size, shape and consistency, no adnexal masses, non-tender, and no cervical motion tenderness RECTOVAGINAL: deferred. NEURO: alert and oriented x3,exam grossly non-focal EXTREMITIES: normal ASSESSMENT/PLAN: 1) Health maintenance: Pap/HPV up to date. Mammogram up to date Nutrition, exercise and routine health maintenance exams reviewed. Calcium/Vitamin D supplementation information provided. Colon cancer screening: scheduled TSH/lipids/glucose: followed by PCP 2) Follow up one year or sooner as needed Kae Abel APRN.CNM [facility] 10-24-2024 History of Presen t illness Narrative Chun is a 54 year old who presents for an annual gynecologic exam without complaints. Postmenopausal: Yes HRT use: No Still get period: No Menopause symptoms: Hot flashes; Night sweats Time with current partner: 27 years Number of lifetime partners: 1 control frequency: Always HPV vaccine: No; Last pap smear: 10/13/2023 - normal History of abnormal pap: No, all prior PAP smears have been normal Bothersome pelvic pain: No Last mammogram: 2024 pending History of abnormal mammogram: Yes - hx of breast biopsy was negative OB History Gravida3 Para3 Term3 Preterm0 AB0 Living3 SAB0 IAB0 Ectopic0 Multiple0 Live Births2 Lining Presser History LMP: 02/17/2024, Perimenopausal Age at Menarche: 13 Age at First : Age at Menopause: Lining Presser History Comments: Sexual Activity: Yes; Male Contraception: Vasectomy PAST MEDICAL HISTORY Diagnosis Date infertility 2002 was on clomid Mitral valve disorders(424.0) Mitral valve prolaspe PAST SURGICAL HISTORY Procedure Laterality Date CATH & SALINE/CONTRAST SONOHYSTER/HYSTEROSALPI EXTRACTION, ERUPTED TOOTH OR EXPOSED ROOT (ELEVATION AND/OR FORCEPS REMOVAL) WISDOM TEETH FAMILY HISTORY Problem Relation Age of Onset Diabetes Mother TYPE 2 Hypertension Mother Hypertension Maternal Grandmother Cancer Maternal Grandfather SKIN Hypertension Maternal Grandfather Colon Cancer Maternal Grandfather 89 Heart Paternal Grandmother Breast Cancer Other MGGM Breast Cancer Other 50 Triple negative SOCIAL HISTORY Social History Tobacco Use Smoking status: Never Smokeless tobacco: Never Vaping Use Vaping status: Never Used Substance Use Topics Alcohol use: Yes Drug use: No REVIEW OF SYSTEMS Abdomen: No abdominal pain, nausea, vomiting, diarrhea, or constipation. No bloating, early satiety, indigestion, or increased flatulence. Bladder: No dysuria, gross hematuria, urinary frequency, urinary urgency, or incontinence Breast: No breast lumps, nipple d/c, overlying skin changes, redness or skin retraction Allergies and current medication updated:Yes SENSITIVE EXAM: The sensitive examination was discussed with the Patient or Patient's Authorized Dye Colorist Dyer. As applicable, any other physician, advance practice provider, medical student, or other health professional student that will be observing or involved in the sensitive examination for educational or training purposes was discussed with the Patient or Authorized Dye Colorist Dyer. The Patient or Authorized Dye Colorist Dyer has agreed to proceed with the sensitive examination. (Sensitive examination includes inspection and/or palpation of the breasts, pelvis, prostate and anorectal regions). EXAM: BP 116/68 Ht 5' 2 (1.58m) Wt 144 lb (65.3kg) LMP 02/17/2024 BMI 26.33 kg/(m^2). GENERAL: pleasant, female in no apparent distress HEENT: Normocephalic, atraumatic, mucus membranes moist, and no lesions NECK: Supple, full range of motion, no adenopathy, and thyroid normal DERMATOLOGY: Normal, without lesions, non-icteric, and non-hirsute BREAST: deferred CHEST: Normal inspiratory effort ABDOMEN: soft, non-tender, and no masses PELVIC: external genitalia normal, normal Bartholin's glands, urethra, Otsego's glands, no vulvar lesions, no cervical lesions, good vaginal support, physiologic discharge present, normal appearing perineal body and perianal region BIMANUAL: uterus normal size, shape and consistency, no adnexal masses, non-tender, and no cervical motion tenderness RECTOVAGINAL: deferred. NEURO: alert and oriented x3,exam grossly non-focal EXTREMITIES: normal ASSESSMENT/PLAN: 1) Health maintenance: Pap/HPV up to date. Mammogram up to date Nutrition, exercise and routine health maintenance exams reviewed. Calcium/Vitamin D supplementation information provided. Colon cancer screening: scheduled TSH/lipids/glucose: followed by PCP 2) Follow up one year or sooner as needed Kae Abel APRN.CNM documented in this encounter [facility] 10-24-2024 History of Presen t illness Narrative Radiology Service Progress Note PATIENT NAME: Chun Hernandes DATE OF SERVICE: October 24, 2024 TIME: 10:57 AM PATIENT IDENTITY VERIFICATION COMPLETED USING TWO (2) IDENTIFIERS: Name and Date of confirmed by patient verbally. FALL SCREENING: Has the patient had 2 falls in the last year or 1 fall with injury or currently using an Ambulatory Assistive Device (Walker, Cane, Wheelchair, Crutches, etc.)? No PATIENT GENDER DATA: Assigned female at . status: : No status: NO. PATIENT RELEVANT IMPLANT DATA REVIEWED: Not Applicable PATIENT PRESENTS WITH AN IMPLANTABLE OR ATTACHED LIFE CONSULTANT: No RADIOLOGY DEPARTMENT: Mammography PERIPHERAL IV DATA: Not applicable SIGNED BY: Марина Gallardo October 24, 2024 10:57 AM documented in this encounter [facility] 10-24-2024 Note HNO ID: [id number] Author: KUNAL REYES Mammo Tech Service: ? Author Type: Electric Refrigerator Preparer Type: Progress Notes Filed: 10/24/2024 10:57 Note Text: Radiology Service Progress Note PATIENT NAME: Chun Hernandes DATE OF SERVICE: October 24, 2024 TIME: 10:57 AM PATIENT IDENTITY VERIFICATION COMPLETED USING TWO (2) IDENTIFIERS: Name and Date of confirmed by patient verbally. FALL SCREENING: Has the patient had 2 falls in the last year or 1 fall with injury or currently using an Ambulatory Assistive Device (Walker, Cane, Wheelchair, Crutches, etc.)? No PATIENT GENDER DATA: Assigned female at . status: : No status: NO. PATIENT RELEVANT IMPLANT DATA REVIEWED: Not Applicable PATIENT PRESENTS WITH AN IMPLANTABLE OR ATTACHED LIFE CONSULTANT: No RADIOLOGY DEPARTMENT: Mammography PERIPHERAL IV DATA: Not applicable SIGNED BY: Марина Gallardo October 24, 2024 10:57 AM [facility] 10-03-2024 Telephone encounter Note Please call patient and assist with scheduling mammogram. Thank you. Elaine Hua RN [facility] 10-03-2024 Miscellaneous Notes Please call patient and assist with scheduling mammogram. Thank you. Elaine Hua RN Orders signed. Kae Abel APRN.CNM Patient has upcoming annual exam on 10/24. She would like to have mammogram on that same day. Please file pende order. Patient will need to be called back to schedule. Pamella Guardado RN documented in this encounter [facility] 10-03-2024 Telephone encounter Note Orders signed. Kae Abel APRN.CNM [facility] Work Phone: 10-03-2024 Telephone encounter Note Patient has upcoming annual exam on 10/24. She would like to have mammogram on that same day. Please file pende order. Patient will need to be called back to schedule. Pamella Guardado RN [facility] 10-24-2023 Miscellaneous Notes October 25, 2023 PID: [id number] Chun Hernandes [address] [id number] Dear Ms. Hernandes, We are pleased to inform you that the results of your recent breast imaging exam on 10/21/2023 are normal. Your mammogram demonstrates that you have dense breast tissue, which could hide abnormalities. Dense breast tissue, in and of itself, is a relatively common condition. Therefore, this information is not provided to cause undue concern; rather, it is to raise your awareness and promote discussion with your health care provider regarding the presence of dense breast tissue in addition to other risk factors. Early detection of cancer is very important. We also understand recommendations regarding breast cancer screening are controversial. Please discuss with your primary care provider which strategy is best for you and whether a mammogram is right for you. Your imaging studies and report will be kept on file at [facility] as part of your permanent medical record and are available for your continuing care. Thank you for allowing us to help in meeting your health care needs. Sincerely, Dr. Mejias Interpreting Radiologist [facility] (Normal over 40) documented in this encounter [facility] 03-23-2023 History of Presen t illness Narrative Subjective HPI HPI Chun Hernandes is a 52 year old female who presents today for CC of st, cough, congestion, ear pain. This started 1 ay ago. Has tried otc medication for relief. Symptoms are worsened by nothing. Risk factors hx of recent OM. nonsmoker. .Patient presents with: Ear Problem: Left ear pain, sore throat, sinus, cough x 1 day PAST MEDICAL HISTORY Diagnosis Date infertility 2002 was on clomid Mitral valve disorders(424.0) Mitral valve prolaspe PAST SURGICAL HISTORY Procedure Laterality Date CATH & SALINE/CONTRAST SONOHYSTER/HYSTEROSALPI EXTRACTION, ERUPTED TOOTH OR EXPOSED ROOT (ELEVATION AND/OR FORCEPS REMOVAL) WISDOM TEETH ALLERGIES Patient has no known allergies. MEDICATIONS Pseudoephedrine-guaiFENesin 120-1,200 mg Tb12 Take 1 tablet by mouth every 12 hours as needed ( FOR SINUS CONGESTION). (Patient not taking: Reported on 09/01/2018 ) METOPROLOL TARTRATE ORAL Take 25 mg by mouth. One pill at bedtime and 1/2 pill in morning (Patient not taking: Reported on 03/13/2023) FAMILY HISTORY Problem Relation Age of Onset Breast Cancer Other MGGM Cancer Maternal Grandfather SKIN Hypertension Maternal Grandmother Hypertension Maternal Grandfather Diabetes Mother TYPE 2 Heart Paternal Grandmother Hypertension Mother Social History Tobacco Use Smoking status: Never Smokeless tobacco: Never Substance Use Topics Alcohol use: Yes Comment: socially, NOT WHILE Drug use: No ROS Objective Physical Exam Constitutional: General: She is not in acute distress. Appearance: She is not toxic-appearing or diaphoretic. HENT: Head: Normocephalic and atraumatic. Right Ear: Hearing, tympanic membrane, ear canal and external ear normal. Left Ear: Hearing, tympanic membrane, ear canal and external ear normal. Nose: Nose normal. Mouth/Throat: Pharynx: Uvula midline. Posterior oropharyngeal erythema present. No pharyngeal swelling, oropharyngeal exudate or uvula swelling. Eyes: General: Lids are normal. No scleral icterus. Right eye: No discharge. Left eye: No discharge. Conjunctiva/sclera: Conjunctivae normal. Pupils: Pupils are equal, round, and reactive to light. Neck: Trachea: Trachea normal. Cardiovascular: Rate and Rhythm: Normal rate and regular rhythm. Heart sounds: Normal heart sounds. Pulmonary: Effort: Pulmonary effort is normal. Breath sounds: Normal breath sounds. Musculoskeletal: Cervical back: Normal range of motion and neck supple. Lymphadenopathy: Cervical: No cervical adenopathy. Right cervical: No superficial cervical adenopathy. Left cervical: No superficial cervical adenopathy. Skin: Findings: No rash. Neurological: Mental Status: She is alert and oriented to person, place, and time. ASSESSMENT/PLAN: 1. Sore throat - ICD9: 462, ICD10: J02.9 (primary diagnosis) - suspect viral - Alere Strep Test neg, no culture pending - Discussed supportive care treatment with fluids, rest and analgesia. - The patient should follow up in 3-5 days if symptoms persist or worsen - Call back if drooling, increased temperature, symptoms of dehydration and/or still sick in one week - ALERE STREP A TEST (AG) 2. ETD (Eustachian tube dysfunction), left - ICD9: 381.81, ICD10: H69.92 -use medication as prescribed -follow up if symptoms persist, worsen, change - FLUTICASONE PROPIONATE 50 MCG/ACTUATION NASAL SPRAY,SUSPENSION - PREDNISONE 20 MG TABLET Dewayne Cotton APRN.MACHINE II CUTTER documented in this encounter [facility] 03-13-2023 Instructions Nazanin Wesley APRN.CRIS - 03/13/2023 9:10 AM EDT ASSESSMENT/PLAN: 1. Sore throat - ICD9: 462, ICD10: J02.9 (primary diagnosis) - suspect viral - Alere Strep Test negative, no culture pending - Discussed supportive care treatment with fluids, rest and analgesia. - STREP A MOLECULAR (POC) 2. Other acute nonsuppurative otitis media of left ear, recurrence not specified - ICD9: 381.00, ICD10: H65.192 - Will begin treatment with as per antibiotic as written, see orders - Supportive care with plenty of fluids, rest, and analgesia prn. - Follow-up with your PCP in 3-5 days if symptoms have not improved or sooner if symptoms worsen - Discussed red flags and need for immediate medical evaluation if any occur. - Discussed supportive care treatment with fluids, rest and analgesia. - Discussed expected course of illness Nazanin Wesley APRN.MACHINE II CUTTER SORE THROAT INSTRUCTIONS SORE THROAT OVERVIEW - Sore throat is a common problem during childhood, and is usually the result of a bacterial or viral infection. Although sore throat usually resolves without complications, it sometimes requires treatment with an antibiotic. There are some less common causes of sore throat that are serious or even life-threatening. This topic will discuss the most common causes and treatments of sore throat in children, as well as the warning signs of more serious conditions. SORE THROAT CAUSES - The most likely cause of a child's sore throat depends upon the child's age, the season, and the geographic area. While viruses are the most common cause of sore throat, bacteria are another common cause. Bacteria and viruses are spread from one person to another through hand contact. Hands get contaminated when the sick individual touches their nose or mouth and then touches another person directly (pmfo-vb-uvkt contact) or indirectly (sipp-wf-omsouz, such as doorknob, telephone, toys). It is difficult to determine the cause of sore throat based upon symptoms alone; an examination and laboratory test are recommended in most cases Viruses - There are many viruses that can cause pain and swelling of the throat. The most common include viruses that cause sore throat as part of an upper respiratory infection, such as the common cold. Other viruses that cause sore throat include influenza, adenovirus, and Mira-Hollis virus (the cause of mononucleosis). Symptoms - Symptoms that may occur with a viral infection can include a runny nose and congestion, irritation or redness of the eyes, cough, hoarseness, soreness in the roof of the mouth, a skin rash, or diarrhea. In addition, children with viral infections may have a fever and may feel miserable. A high fever does not necessarily mean that the child has a bacterial infection. Group A streptococcus - Group A streptococcus (GAS) is the name of the bacterium that causes strep throat. Although other bacteria can cause a sore throat, GAS is the most common bacterial cause; up to 30 percent of children with a sore throat will have GAS. Strep throat usually occurs during the winter and early spring, and is most common in school-age children and their younger siblings. Symptoms - Symptoms of strep throat in children older than 3 years often develop suddenly and include fever (temperature ?100.4 F or 38 C), headache, abdominal pain, nausea, and vomiting. Other symptoms can include swollen glands in the neck, white patches of pus in the back or sides of the throat, small red spots on the roof of the mouth, and swelling of the uvula. A cough and cold are not commonly seen in children with strep throat. Strep throat is uncommon in children younger than age 2 to 3 years. However, GAS infection can occur in younger children, and may cause a runny nose and congestion that is prolonged, low-grade fever (?101 F or 38.3 C), and tender glands in the neck. Infants younger than 1 year may be fussy and have a decreased appetite and low-grade fever. SORE THROAT TREATMENT - The treatment of sore throat depends upon the cause; strep throat is treated with an antibiotic while viral pharyngitis is treated with rest, pain relievers, and other measures to reduce symptoms. Strep throat - Strep throat is usually treated with an antibiotic, such as penicillin, or an antibiotic similar to penicillin (eg, amoxicillin). Children who are allergic to penicillin will be given an alternate antibiotic. The antibiotic is usually given in pill or liquid form two or three times per day. A one-time injection is also available, and may be recommended if a child is unwilling to take an oral medication. After completing 24 hours of antibiotics, the child is no longer contagious and may return to school. Symptoms usually improve within 1 to 2 days. However, it is important for the child to finish the entire course of treatment (usually 10 days). If a child does not begin to improve or worsens within 3 days, the child should be reevaluated. Throat pain can be treated with a non-prescription pain medication, if needed. (See 'Pain medications' below.) In addition, parents should monitor their child for dehydration, which can develop if the child is not willing to drink or eat due to a sore throat. (See 'Monitor for dehydration' below.) Viral throat pain - Sore throat caused by viral infections usually last 4 to 5 days. During this time, treatments to reduce pain may be helpful but will not help to eliminate the virus. Antibiotics do not improve throat pain caused by a virus and are not recommended. A child with a viral infection is usually allowed to return to school when there has been no fever for 24 hours and the child feels well enough to pay attention. Pain medications - Throat pain can be treated with a mild pain reliever such as acetaminophen (Tylenol ) or a non-steroidal anti-inflammatory agent such as ibuprofen (Motrin ). These medications should be dosed according to weight, not age. Aspirin is not recommended for children <18 years due to the risk of a potentially serious condition known as Aubrey syndrome. Monitor for dehydration - Some children with a sore throat are reluctant to drink or eat due to pain. Drinking less fluid can lead to dehydration. To reduce the risk of dehydration, parents can offer warm or cold liquids. (See 'Other interventions' below.) Signs and symptoms of mild dehydration include a slightly dry mouth, increased thirst, and decreased urine output (one wet diaper or void in six hours). Signs of moderate or severe dehydration include decreased urine output (less than one wet diaper or void in six hours), lack of tears when crying, dry mouth, and sunken eyes. A child who is moderately or severely dehydrated should be evaluated by a healthcare provider as soon as possible to determine if treatment is needed. Oral rinses- Salt-water gargles are an old stand-by for relief of throat pain. It is not clear if this treatment is effective, but it is unlikely to be harmful. Most recipes suggest 1/4 to 1/2 teaspoon of salt per cup (8 ounces) of warm water. The water should be gargled and then spit out (not swallowed). Children younger than six to eight years are not able to gargle properly. An oral rinse composed of equal parts of diphenhydramine (Benadryl liquid) and Maalox (magnesium hydroxide, aluminum hydroxide, and simethicone) may be helpful for pain caused by a sore mouth or ulcers in the mouth. Children older than six to eight years may swish and spit (not swallow) the mixture. Sprays - Sprays containing topical anesthetics are available to treat sore throat. However, such sprays are no more effective than sucking on hard candy. In addition, a common anesthetic ingredient, benzocaine, can cause allergic reactions. We do not recommend throat sprays for children. Lozenges - A variety of medicated throat lozenges are available to relieve dryness or pain. However, it is not clear that lozenges work any better than hard candy. We do not recommend throat lozenges for children, especially children younger than 3 to 4 years, who can choke. Sucking on hard candy may provide some relief for children older than 3 to 4 years, who are not at risk for choking. Other interventions - Other interventions include sipping warm beverages (eg, honey or lemon tea, chicken soup), cold beverages, or eating cold or frozen desserts (eg, ice cream, popsicles). These treatments are safe for children. Honey should not be given to children younger than 12 months due to the potential risk of botulism poisoning. Alternative therapies - Health food stores, vitamin outlets, and Internet Web sites offer alternative treatments for relief of sore throat pain. We do not recommend these treatments due to the risks of contamination with pesticides/herbicides, inaccurate labeling and dosing information, and a lack of studies showing that these treatments are safe and effective. SORE THROAT PREVENTION - Hand washing is an essential and highly effective way to prevent the spread of infection. Hands should be wet with water and plain soap, and rubbed together for 15 to 30 seconds. Special attention should be paid to the fingernails, between the fingers, and the wrists. Hands should be rinsed thoroughly, and dried with a single use towel. Alcohol-based hand rubs are a good alternative for disinfecting hands if a sink is not available. Hand rubs should be spread over the entire surface of hands, fingers, and wrists until dry, and may be used several times. These rubs can be used repeatedly without skin irritation or loss of effectiveness. Hand rubs are available as a liquid or wipe in small, portable sizes that are easy to carry in a pocket or handbag. When a sink is available, visibly soiled hands should be washed with soap and water. Hands should be washed after coughing, blowing the nose or sneezing. While it is not always possible to limit contact with a person who is sick, avoiding touching the eyes, nose, or mouth after direct contact can help to prevent the spread of infection. In addition, tissues should be used to cover the mouth when sneezing or coughing. These used tissues should be disposed of promptly. Sneezing/coughing into the sleeve of one's clothing (at the inner elbow) is another means of containing sprays of saliva and secretions and has the advantage of not contaminating the hands. WHEN TO SEEK HELP - Parents of a child with throat pain and one or more of the following should contact their healthcare provider immediately: Difficulty swallowing or breathing Excessive drooling in an infant or young child Temperature ?101 F or 38.3 C Swelling of the neck Child is unable or unwilling to drink or eat Voice sounds muffled Child has a stiff neck or difficulty opening the mouth WHERE TO GET MORE INFORMATION - Your child's healthcare provider is the best source of information for questions and concerns related to your child's medical problem. This article will be updated as needed every four months on our web site ([email or web address]). Information below was obtained from Up to date Last literature review version 19.2: January 2011 This topic last updated: 2010 documented in this encounter [facility] 03-13-2023 History of Presen t illness Narrative Subjective Sore Throat Associated symptoms include congestion, coughing, ear pain and headaches. Chun Hernandes is a 52 year old female who presents with cough, sore throat, headache, throat congestion for 5 days. Her son was sick with strep last week. Yesterday she developed left ear pain and frequent popping in the ear. This morning she woke us with crusting and drainage from her left eye. She has not had a fever. She has been taking dayquil/nyquil and motrin at home. Review of Systems Constitutional: Negative for chills and fever. HENT: Positive for congestion, ear pain, sore throat and tinnitus. Respiratory: Positive for cough. Cardiovascular: Negative. Musculoskeletal: Negative for myalgias. Skin: Negative for itching and rash. Neurological: Positive for headaches. BP 122/84 Pulse 105 Temp 36.1 C (97 F) Resp 18 Wt 64.2 kg (141 lb 9.6 oz) LMP 04/06/2016 (Within Days) SpO2 99% BMI 25.90 kg/m PAST MEDICAL HISTORY Diagnosis Date infertility 2002 was on clomid Mitral valve disorders(424.0) Mitral valve prolaspe PAST SURGICAL HISTORY Procedure Laterality Date CATH & SALINE/CONTRAST SONOHYSTER/HYSTEROSALPI EXTRACTION, ERUPTED TOOTH OR EXPOSED ROOT (ELEVATION AND/OR FORCEPS REMOVAL) WISDOM TEETH ALLERGIES Patient has no known allergies. MEDICATIONS Pseudoephedrine-guaiFENesin 120-1,200 mg Tb12 Take 1 tablet by mouth every 12 hours as needed ( FOR SINUS CONGESTION). (Patient not taking: Reported on 09/01/2018 ) METOPROLOL TARTRATE ORAL Take 25 mg by mouth. One pill at bedtime and 1/2 pill in morning (Patient not taking: Reported on 03/13/2023) FAMILY HISTORY Problem Relation Age of Onset Breast Cancer Other MGGM Cancer Maternal Grandfather SKIN Hypertension Maternal Grandmother Hypertension Maternal Grandfather Diabetes Mother TYPE 2 Heart Paternal Grandmother Hypertension Mother Social History Tobacco Use Smoking status: Never Smokeless tobacco: Never Substance Use Topics Alcohol use: Yes Comment: socially, NOT WHILE Drug use: No Objective Physical Exam Vitals and nursing note reviewed. Constitutional: Appearance: Normal appearance. HENT: Right Ear: Tympanic membrane, ear canal and external ear normal. Left Ear: Ear canal and external ear normal. A middle ear effusion is present. Tympanic membrane is injected. Nose: Nose normal. Mouth/Throat: Lips: [place]. Mouth: Mucous membranes are moist. Pharynx: Uvula midline. Posterior oropharyngeal erythema present. No oropharyngeal exudate. Tonsils: No tonsillar exudate. Cardiovascular: Rate and Rhythm: Normal rate and regular rhythm. Heart sounds: Normal heart sounds. Pulmonary: Effort: Pulmonary effort is normal. No respiratory distress. Breath sounds: Normal breath sounds. No wheezing or rales. Musculoskeletal: Cervical back: Neck supple. Lymphadenopathy: Cervical: No cervical adenopathy. Skin: General: Skin is warm and dry. Findings: No erythema or rash. Neurological: Mental Status: She is alert. ASSESSMENT/PLAN: 1. Sore throat - ICD9: 462, ICD10: J02.9 (primary diagnosis) - suspect viral - Alere Strep Test negative, no culture pending - Discussed supportive care treatment with fluids, rest and analgesia. - STREP A MOLECULAR (POC) 2. Other acute nonsuppurative otitis media of left ear, recurrence not specified - ICD9: 381.00, ICD10: H65.192 - Will begin treatment with as per antibiotic as written, see orders - Supportive care with plenty of fluids, rest, and analgesia prn. - Follow-up with your PCP in 3-5 days if symptoms have not improved or sooner if symptoms worsen - Discussed red flags and need for immediate medical evaluation if any occur. - Discussed supportive care treatment with fluids, rest and analgesia. - Discussed expected course of illness Nazanin Wesley APRN.[employer] C[employer] documented in this encounter [facility] Evaluation note No assessment inform ation available [facility] Work Phone: Evaluation note Diagnosis Complete uterovaginal prolapse- Primary Uterovaginal prolapse, complete [facility] Diagnosis Sore throat- Primary Acute pharyngitis Other acute nonsuppurative otitis media of left ear, recurrence not specified [facility] Diagnosis Sore throat- Primary Acute pharyngitis ETD (Eustachian tube dysfunction), left [facility] Diagnosis Encounter for gynecological examination (general) (routine) without abnormal findings Encounter for screening for human papillomavirus (HPV) Special screening examination for human papillomavirus (HPV) Pap smear for cervical cancer screening Screening for malignant neoplasm of the cervix Dense breast tissue [facility] Diagnosis Encounter for screening mammogram for malignant neoplasm of breast- Primary Other screening mammogram [facility] Diagnosis Encounter for gynecological examination (general) (routine) without abnormal findings- Primary Encounter for screening mammogram for breast cancer Dense breast tissue Post-menopause Asymptomatic postmenopausal status (age-related) (natural) [facility] Diagnosis Encounter for screening mammogram for malignant neoplasm of breast Other screening mammogram [facility] Diagnosis Dense breast tissue- Primary documented in this encounter [facility] for referral (narrative)* Consultation (Routine) - Closed Specialty Diagnoses / Procedures Referred By Jasiel odonnell Referred To Contact Urogynecology Diagnoses Complete uterovaginal prolapse Procedures TX OFFICE/OUTPATIENT NEW HIGH MDM 60-74 MINUTES [facility] [address] [place] [address] [facility] [address] [place] [address] Referral ID Status Reason Start Date Expiration Date V isits Requested Visits Authorized [id number] Closed Specialty Services Required 10/14/2022 10/14/2023 1 1 [facility] for referral (narrative)* Diagnostic Procedure Only (Routine) - Authorized Specialty Diagnoses / Procedures Referred By Jasiel odonnell Referred To Contact [facility] Diagnoses Encounter for screening mammogram for malignant neoplasm of breast Procedures JANEY SCREENING W LUANNE SCREENING DIGITAL BREAST TOMOSYNTHESIS BI SCREENING MAMMOGRAPHY BI 2-VIEW BREAST INC Kae Orellana APRN.CNM [address] [place] [address] [facility] [address] [place] [address] Referral ID Status Reason Start Date Expiration Date Visits Requested Visits Authorized [id number] Authorized Auto-Generat ed Referral 10/03/2024 11/02/2025 1 1 [facility] for visit Narrative* Diagnostic Procedure Only (Routine) - Closed Specialty Diagnoses / Procedures Referred By Jasiel odonnell Referred To Contact [facility] Diagnoses Encounter for gynecological examination (general) (routine) without abnormal findings Encounter for screening for human papillomavirus (HPV) Pap smear for cervical cancer screening Dense breast tissue Procedures JANEY SCREENING W LUANNE SCREENING DIGITAL BREAST TOMOSYNTHESIS BI SCREENING MAMMOGRAPHY BI 2-VIEW BREAST INC Kae Orellana APRN.CNM [address] [place] [address] [facility] [address] [place] [address] Referral ID Status Reason Start Date Expiration Date V isits Requested Visits Authorized [id number] Closed Auto-Generate d Referral 10/13/2023 11/11/2024 1 [facility] Diagnostic Procedure Only (Routine) - Closed Specialty Diagnoses / Procedures Referred By Contac t Referred To Contact [facility] Diagnoses Encounter for screening mammogram for malignant neoplasm of breast Procedures JANEY SCREENING W LUANNE SCREENING DIGITAL BREAST TOMOSYNTHESIS BI SCREENING MAMMOGRAPHY BI 2-VIEW BREAST INC Kae Orellana APRN.CNM [address] [place] [address] Phone: tel: fax: [facility] [address] [place] [address] Referral ID Status Reason Start Date Expiration Date V isits Requested Visits Authorized [id number] Closed Auto-Generate d Referral 10/03/2024 11/02/2025 1 1 [facility] Summary Purpose Family History No Family History Records Found Relationship Condition Age at Onset Recorded Date/T haley son Asthma Unknown aunt Malignant neoplasm of breast Unknown grandfather Malignant neoplasm of colon Unknown mother Diabetes mellitus Unknown Hypertension Unknown Advance Directives No Advanced Directives Records Found Advance Directive Response Recorded Date/ Time Living Will Yes December 26, 2023 6:51am Power of Roller Skater Yes December 25 6:51am Name of Medical Power of Roller Skater lawrence whalen December 26, 2023 6:51am Chief Complaint and Reason for Visit Chief Complaint neck and chest pain Additional Source Comments INFORMATION SOURCE (unrecogn ized section and content) DATE CREATED AUTHOR 11/19/2018 [facility] ([place]) DATE CREATED AUTHOR AUTHOR'S ORGANIZ ATION 10/26/2024 [facility] DATE CREATED AUTHOR AUTHOR'S ORGANIZ ATION 02/11/2025 [facility] Goals (unrecognized section and content) Goals may be documented in a n alternate sectionGoals may be documented in an alternate section Source Comments (unrecognize d section and content) In the event this informatio n is protected by the Federal Confidentiality of Alcohol and Drug Abuse Patient Records regulations: The Federal rules restrict any use of the information to criminally investigate or prosecute any alcohol or drug abuse patient.[facility] the event this information is protected by the Federal Confidentiality of Alcohol and Drug Abuse Patient Records regulations: The Federal rules restrict any use of the information to criminally investigate or prosecute any alcohol or drug abuse patient.[facility] the event this information is protected by the Federal Confidentiality of Alcohol and Drug Abuse Patient Records regulations: The Federal rules restrict any use of the information to criminally investigate or prosecute any alcohol or drug abuse patient.[facility] the event this information is protected by the Federal Confidentiality of Alcohol and Drug Abuse Patient Records regulations: The Federal rules restrict any use of the information to criminally investigate or prosecute any alcohol or drug abuse patient.[facility] the event this information is protected by the Federal Confidentiality of Alcohol and Drug Abuse Patient Records regulations: The Federal rules restrict any use of the information to criminally investigate or prosecute any alcohol or drug abuse patient.[facility] the event this information is protected by the Federal Confidentiality of Alcohol and Drug Abuse Patient Records regulations: The Federal rules restrict any use of the information to criminally investigate or prosecute any alcohol or drug abuse patient.[facility] the event this information is protected by the Federal Confidentiality of Alcohol and Drug Abuse Patient Records regulations: The Federal rules restrict any use of the information to criminally investigate or prosecute any alcohol or drug abuse patient.[facility] the event this information is protected by the Federal Confidentiality of Alcohol and Drug Abuse Patient Records regulations: The Federal rules restrict any use of the information to criminally investigate or prosecute any alcohol or drug abuse patient.[facility] the event this information is protected by the Federal Confidentiality of Alcohol and Drug Abuse Patient Records regulations: The Federal rules restrict any use of the information to criminally investigate or prosecute any alcohol or drug abuse patient.[facility] Reason for Visit (unrecogniz ed section and content) Reason Comments Sore Throat Cough, MONREAL, congestio n, ears clogged x5 days Reason Comments Ear Problem Left ear pain, sore throat, sinus, cough x 1 day Reason Comments Orders Reason Comments Well Woman Reason Comments Mammogram results Care Teams (unrecognized sec tion and content) [employer] Installer Relationship Specialty Start Date End Date Ira Milian [address] [place] [phone] PCP - General Family Medicine 04/08/14 [employer]er Relationship Specialty Start Date End Date Ira Milian [address] [place] [phone] PCP - General Family Medicine 04/08/14 [employer] Installer Relationship Specialty Start Date End Date Ira Milian [address] [place] [phone] PCP - General Family Medicine 04/08/14 [employer] Protection Installer Relationship Specialty Start Date End Date Ira Milian [address] [place] [phone] PCP - General Family Medicine 04/08/14 Team Status: Active Member Role Status Dates No Primary Care Physician Family Provider Active No Primary Care Physician Primary Care Provider Active Team Status: Inactive Member Role Status Dates Dr. Aiden Butts , DO Emergency Provider Active No Primary Care Physician Primary Care Provider Active [employer] Installer Relationship Specialty Start Date End Date Ira Milian CNP [address] [place] [address] PCP - General Family Medicine 04/08/14 Lightning Protection Installer Relationship Specialty Start Date End Date Lila Milianica CRIS Skinner [address] [place] [address] PCP - [facility] Medicine 04/08/14 Lightning Protection Installer Relationship Specialty Start Date End Date Lila Milianica Brody CRIS [address] [place] [address] PCP - General Family Medicine 04/08/14 Lightning Protection Installer Relationship Specialty Start Date End Date Ira Milian CRIS [address] [place] [address] PCP - General Family Medicine 04/08/14 FOR RECORDS PERTAINING TO PATIENTS WHO ARE OR HAVE BEEN ENROLLED IN A CHEMICAL DEPENDENCY/SUBSTANCEABUSE PROGRAM, SOME INFORMATION MAY BE OMITTED. This clinical summary was aggregated from multiple sources. Caution should be exercised in using it in the provision of clinical care. This summary normalizes information from multiple sources, and as a consequence, information in this document may materially change the coding, format and clinical context of patient data. In addition, data may be omitted in some cases. CLINICAL DECISIONS SHOULD BE BASED ON THE PRIMARY CLINICAL RECORDS. [facility] [employer] [facility]. provides no warranty or guarantee of the accuracy or completeness of information in this document.
[2025-02-13] MEDS: Lactated Ringers 1,000 ML 15 ML IV (08:30)
--- NOTE | 2025-02-13 08:59 | PCM.PRE.AN2 ---
ASA Classification* ASA Classification ASA Classification: 2 (MVP, PONV) Assessment & Plan Anesthesia* Anesthesia Assessment Anesthesia Assessment: Discussed sedation and/or anesthesia options, risks, benefits, and alternatives with patient/parents/legal guardian/POA. Questions invited. The patient/parents/legal guardian/POA seems to understand and agrees to proceed with anesthesia plan. Reviewed the physical assessment, medical history, allergy history and patient home medications list prior to surgery/procedure/anesthetic and documented any changes. Performed airway and anesthesia risk assessments. Anesthesia Type Anesthesia Type: General History Source History Obtained from:: Patient and Chart Anesthesia Focused Assessment* Temperature: 98.3 F Pulse Rate: 70 Blood Pressure: 122/68 Respiratory Rate: 18 Pulse Ox: 100 Oxygen Delivery Method: Room Air Airway Assessment Mouth opens: >3 cm Mallampati Score: II Focused Labs Anesthesia Preop lab: CBC WBC 5.1 K/mm3 (4.4-11.0) 07/28/24 09:00 07/28/24 RBC 4.92 M/mm3 (4.2-5.4) 07/28/24 09:00 07/28/24 Hgb 15.7 g/dL (12.0-15.0) H 07/28/24 09:00 07/28/24 Hct 47.2 % (37-47) H 07/28/24 09:00 07/28/24 Plt Count 229 K/mm3 (150-450) 07/28/24 09:00 07/28/24 CHEMISTRY Potassium 4.4 mmol/L (3.5-5.1) 07/28/24 09:00 07/28/24 Sodium 140 mmol/L (136-145) 07/28/24 09:00 07/28/24 BUN 18 mg/dL (7-18) 07/28/24 09:00 07/28/24 Creatinine 0.95 mg/dL (0.55-1.02) 07/28/24 09:00 07/28/24 Glucose 91 mg/dL (74-106) 07/28/24 09:00 07/28/24 TSH 2.190 uIU/mL (0.358-3.740) 07/28/24 09:00 07/28/24 COAG Pre-Assessment Diagnosis/Proposed Procedure Planned Operative Procedure(s): Colonoscopy - Open Access Anesthesia History Anesthesia History - vascular ultrasound technician: Anesthesia History - vascular ultrasound technician Hx Hospitalization No 02/08/25 15:08 Any Problems With Anesthesia No 02/08/25 15:08 Cholinesterase deficiency No 02/08/25 15:08 You/Your Family Experience No 02/08/25 15:08 fever (hyperthermia) with Relationship Recent Exposure to Contagious No 02/13/25 08:20 Disease Does patient have nerve No 02/08/25 15:08 stimulator Patient instructed to have device shut off --Does patient have Pacemaker No 02/13/25 08:21 or ICD? When Was Last Pacemaker Check QUESTION #4 FULL TEXT: You/Your Family Experience fever (hyperthermia) with Anesthesia Last Oral Intake Last Oral intake: Last Oral Intake NPO since 06:00 02/13/25 08:21 Meds taken in AM with sips of water? Meds patient instructed to take am of surgery PONV PONV - vascular ultrasound technician: PONV - vascular ultrasound technician Female Yes 02/08/25 15:08 HX of Motion Sickness Yes 02/08/25 15:08 HX of N/V After Surgery Yes 02/08/25 15:08 Non-Smoker Yes 02/08/25 15:08 Duration of Surgery greater No 02/08/25 15:08 than 60 minutes Number of Risk Factors 4 02/08/25 15:08 PONV Score Severe Risk 02/08/25 15:08 Height & Weight Height & Weight: Anesthesia: Height & Weight Height 5 ft 2 in 02/13/25 08:21 Weight: 62.596 kg 02/13/25 08:21 Body Mass Index (BMI) 25.2 02/13/25 08:21 Respiratory Assessment Respiratory Assessment - vascular ultrasound technician: Respiratory Tract Infection Hx - vascular ultrasound technician Hx Respiratory Tract Infection No 02/08/25 15:08 STOP Sleep Apnea STOP Sleep Apnea - vascular ultrasound technician: STOP Sleep Apnea - vascular ultrasound technician Hx Hypertension No 02/08/25 15:08 Hx Sleep Apnea No 02/08/25 15:08 CPAP BIPAP Do you snore loudly (louder No 02/08/25 15:08 than talking or can be heard Do you often feel tired/ No 02/08/25 15:08 fatigued/ sleepy during daytime? Has anyone observed you stop No 02/08/25 15:08 breathing during sleep? STOP Results Negative 02/08/25 15:08 QUESTION #5 FULL TEXT : Do you snore loudly (louder than talking or can be heard through closed doors)? Tobacco Use History Tobacco Use History - vascular ultrasound technician: Tobacco Use History - vascular ultrasound technician Tobacco Use Smoking Status Never smoker 02/08/25 15:08 Hx Tobacco Use No 02/08/25 15:08 Years Smoking Packs Smoked per Day Smoking Cessation Date was within the last 15 years Hx Smoking Cessation Date Hx Smoking Cessation Counseling Hematologic Medial History Hematologic Hx - vascular ultrasound technician: Hematologic Medical Hx - documentation engineer Hx of Blood Transfusion No 02/08/25 15:08 Hx of Transfusion in last 3 No 02/08/25 15:08 Months Date of Last Transfusion (if within last 3 months) Ever experience any problems No 02/08/25 15:08 with transfusion(s)? Specify any problems Hx of Preganancy in last 3 No 02/08/25 15:08 Months Nurse Filling Out Transfusion JZOLLINGE 02/08/25 15:08 & Questions: Date: 02/08/25 02/08/25 15:08 Time: 15:12 02/08/25 15:08 Patient unable to answer at this time (ie. confused, unrespo /Reproduction History /Reproductive History - vascular ultrasound technician: /Reproductive Hx- vascular ultrasound technician Hx Now No 02/08/25 15:08 Gestational Age (in weeks): EDC: Hx Hx Para Hx Section SAB No 02/08/25 15:08 Active Medications Active Medications: Current Medications Generic Name Dose Route Start Last Admin Trade Name Freq PRN Reason Stop Dose Admin Lactated Ringer's 1,000 mls @ 15 mls/hr 02/13/25 08:15 02/13/25 08:30 IV 15 mls/hr .Q48H AMAURY Administration PFSH Medical History Wears glasses Wears contact lenses Alcohol use Non-smoker Cardiology follow-up encounter Palpitations Nonrheumatic mitral valve regurgitation Microcalcification of left breast on mammogram Mitral valve prolapse Home Medications ?Medication ?Instructions ?Recorded ?Last Taken ?Type biotin 1 mg capsule 1 mg PO DAILY 04/09/20 02/11/25 History Lactobacillus acidophilus 1 tab PO ONCE 08/15/24 02/11/25 History (Acidophilus chewable tablet) calcium 600 mg-D3 20 mcg-magnesium 1 tab PO QDAY 08/15/24 02/11/25 History 50 mg-copper 1 gr-onsu-scvc tablet (Caltrate-D3 Plus Minerals) Allergy/AdvReac Type Severity Reaction Status Date / Time No Known Allergies Allergy Verified 02/13/25 08:19 Family History Son Asthma Aunt Breast cancer Grandfather Colon cancer At 89yrs, paternal Mother Diabetes Hypertension Surgical History History of wisdom tooth extraction Social History household members: spouse current occupational status: employed Smoking Status: Never smoker alcohol intake: current alcohol intake frequency: holidays/special occasions only substance use type: does not use caffeine: Yes (Occasionally) Type: tea Review of Systems (Anesthesia) ROS Narrative System reviewed and no additional complaints, except as documented.
--- NOTE | 2025-02-13 09:00 | COLBX_PTH ---
PATIENT: CHUN HERNANDES LOC: EN U#:[id number] AGE/SX: 54/F ROOM: RE02/13/[address]: Dr. Td Hidalgo DO : 1970 BED: DIS: 02/13/2025 SPEC #: [id number] RECD: 02/13/25 11:04 STATUS: CHAD BEAN #: [id number] TERRIE: 02/13/25 09:[address]: Td Hidalgo DEPT: SURGICAL PATHOLOGY RECD BY: Steven Pereira ENTERED: 02/13/25 11:16 SP TYPE: COLON BX OTHR DR: Cami Primary Care Phys Tissues: A - Sigmoid colon biopsy B - Rectum, NOS Procedures: Surgery Specimen Level IV HEADER OPERATION: Colonoscopy with biopsy PRE-OP DIAGNOSIS: Encounter for screening for malignant neoplasm of colon TISSUE SUBMITTED: A- Sigmoid polyp biopsy, B- Rectal polyp biopsy MICROSCOPIC DIAGNOSIS A. Large intestine, sigmoid polyp, biopsies: * One piece of benign colonic mucosa without dysplasia * One piece of acutely inflamed granulation tissue, suggesting an inflammatory pseudo polyp, benign B. Rectum, polyp: * Tubular adenoma MICROSCOPIC DESCRIPTION Slides are reviewed. GROSS DESCRIPTION A. Received in formalin in a container labeled with the patient's name, date of , and sigmoid polyp biopsy are 2 vinson-pink fragments of mucosal tissue measuring 0.2 x 0.2 x 0.2 cm and 0.3 x 0.2 x 0.2 cm. Submitted in toto in A1. B. Received in formalin in a container labeled with the patient's name, date of , and rectal polyp biopsy is a 0.3 x 0.2 x 0.2 cm fragment of vinson-pink mucosal tissue. Submitted in toto in B1. [facility] 02-13-2025 CPT:48087t8
--- NOTE | 2025-02-13 10:00 | OP.COLON_ITS ---
Patient Name: Anne Arredondo Procedure Date: 02/13/2025 9:27 AM Date of : 1970 Age: 54 Procedure: Colonoscopy Indications: Screening for colorectal malignant neoplasm Providers: Td Hidalgo DO Referring MD: No Primary Care Physician Medicines: Monitored Anesthesia Care Patient Profile: This is a 54 year old female. Refer to note in patient chart for documentation of history and physical. Last Colonoscopy: none. The patient's first colonoscopy is today. Complications: No immediate complications. Procedure: Pre-Anesthesia Assessment: - Prior to the procedure, a History and Physical was performed, and patient medications and allergies were reviewed. The patient is competent. The risks and benefits of the procedure and the sedation options and risks were discussed with the patient. All questions were answered and informed consent was obtained. Patient identification and proposed procedure were verified by the physician in the pre-procedure area. Mental Status Examination: alert and oriented. Airway Examination: normal oropharyngeal airway and neck mobility. Respiratory Examination: clear to auscultation. CV Examination: normal. Prophylactic Antibiotics: The patient does not require prophylactic antibiotics. Prior Anticoagulants: The patient has taken no anticoagulant or antiplatelet agents. ASA Grade Assessment: II - A patient with mild systemic disease. After reviewing the risks and benefits, the patient was deemed in satisfactory condition to undergo the procedure. The anesthesia plan was to use monitored anesthesia care (MAC). Immediately prior to administration of medications, the patient was re-assessed for adequacy to receive sedatives. The heart rate, respiratory rate, oxygen saturations, blood pressure, adequacy of pulmonary ventilation, and response to care were monitored throughout the procedure. The physical status of the patient was re-assessed after the procedure. After I obtained informed consent, the scope was passed under direct vision. Throughout the procedure, the patient's blood pressure, pulse, and oxygen saturations were monitored continuously. The pediatric colonoscope was introduced through the anus and advanced to the cecum, identified by appendiceal orifice and ileocecal valve. The colonoscopy was performed without difficulty. The patient tolerated the procedure well. The quality of the bowel preparation was adequate. The ileocecal valve, appendiceal orifice, and rectum were photographed. Scope In: 9:38:35 AM Scope Withdrawal Time 0 hours 10 minutes 47 seconds Scope Out: 9:54:33 AM Total Procedure Duration Time 0 hours 15 minutes 58 seconds Findings: The perianal and digital rectal examinations were normal. A few small-mouthed diverticula were found in the recto-sigmoid colon and sigmoid colon. Two sessile polyps were found in the rectum and sigmoid colon. The polyps were 5 mm in size. These polyps were removed with a jumbo cold forceps. Resection and retrieval were complete. Verification of patient identification for the specimen was done. Estimated blood loss was minimal. The exam was otherwise without abnormality on direct and retroflexion views. Impression: - Diverticulosis in the recto-sigmoid colon and in the sigmoid colon. - Two 5 mm polyps in the rectum and in the sigmoid colon, removed with a jumbo cold forceps. Resected and retrieved. - The examination was otherwise normal on direct and retroflexion views. Recommendation: - Discharge patient to home. - Resume previous diet. - Continue present medications. - Await pathology results. - Repeat colonoscopy in 5 years for surveillance. Procedure Code(s): --- Professional --- 88377, Colonoscopy, flexible; with biopsy, single or multiple CPT copyright 2021 [employer]. All rights reserved. The codes documented in this report are preliminary and upon delivery technician review may be revised to meet current compliance requirements. Td Hidalgo DO 02/13/2025 9:59:59 AM This report has been signed electronically. Number of Addenda: 0 Note Initiated On: 02/13/2025 9:27 AM
--- NOTE | 2025-02-13 10:00 | OP.CCLET_ITS ---
02/13/2025 No Primary Care Physician Re : Colonoscopy procedure for Anne Arredondo Dear Care Physician This procedure was performed on Thursday, February 13, 2025. My impressions and recommendations are as follows: Impressions : - Diverticulosis in the recto-sigmoid colon and in the sigmoid colon. - Two 5 mm polyps in the rectum and in the sigmoid colon, removed with a jumbo cold forceps. Resected and retrieved. - The examination was otherwise normal on direct and retroflexion views. Recommendations : - Discharge patient to home. - Resume previous diet. - Continue present medications. - Await pathology results. - Repeat colonoscopy in 5 years for surveillance. My findings are described in the full procedure note, which is enclosed. If I can be of further assistance, please feel free to contact me at . Sincerely, Td Hidalgo, 02/13/2025 9:59:59 AM This report has been signed electronically.
--- NOTE | 2025-02-13 10:04 | PCM.POST.ANE ---
Anesthesia: Postop Eval I Current Vital Signs Temperature: 97 F Pulse Rate: 79 Blood Pressure: 109/66 Respiratory Rate: 16 Pulse Ox: 97 Oxygen Delivery Method: Room Air Assessment Airway patent: Yes Spontaneous unlabored respirations: Yes Mental status: Asleep nausea: No Vomiting: No Anesthesia Complication: No Fluid Hydration Crystalloid volume administer (ml): 600 Total IV fluid infused: 600 Progress Note Anesthesia document: Postop Eval 1 completed: Yes
--- NOTE | 2025-02-13 10:54 | PCM.POSTANE2 ---
Anesthesia Postop Eval I Sum Postop Eval Completion status Anesthesia document: Postop Eval 1 completed: Yes Anesthesia Postop Eval I Summary Anesthesia Postop Eval I Summary: Anesthesia Postop Eval I: Assessment Summary Airway patent Yes 02/13/25 10:05 [email or web address] Spontaneous unlabored Yes 02/13/25 10:05 [email or web address] respirations Mental status Asleep 02/13/25 10:05 [email or web address] nausea No 02/13/25 10:05 [email or web address] Vomiting No 02/13/25 10:05 [email or web address] Anesthesia Postop Eval I: Fluid Summary Crystalloid volume administer 600 02/13/25 10:05 [email or web address] (ml) Colloids volume administered ( ml) Blood Product volume administered (ml) Total IV fluid infused 600 02/13/25 10:05 [email or web address] Anesthesia Postop Eval I: Summary Notes Anesthesia Complication No 02/13/25 10:05 [email or web address] Anesthesia Complication Comment: Post-operative progress note Anesthesia: Postop Eval II Evaluation Mental status: Awake Pain Level: 0 nausea: No Vomiting: No Complications Anesthesia Complication: No
== END 2025-02-13 10:43 | disposition home or self-care (01) ==
LOC: EN 07:56 → AC 07:57
PROVIDERS: Visit Provider Internal Medicine Gastroenterology
PROC: 0DJD8ZZ Inspection of Lower Intestinal Tract, Via Natural or Artificial Opening Endoscopic (ICD-10-PCS; CPT 45378; principal; 2025-02-13 08:55)
DX: Z12.11 Encounter for screening for malignant neoplasm of colon (principal); K57.30 Diverticulosis of large intestine without perforation or abscess without bleeding; K62.1 Rectal polyp; Z80.0 Family history of malignant neoplasm of digestive organs; K63.5 Polyp of colon
CPT/HCPCS: 45380; 88305; J2405